=== PATIENT | female | born 2000 | race Caucasian/White ===

== ENCOUNTER → 2022-01-01 15:15 | Outpatient (CLI) | payer OTHER, SELFPAY ==
--- NOTE | ~2022-01-01 | US_ITS ---
EXAMINATION: US OB <= 14 weeks fetus DATE: 01/01/2022 15:49 INDICATION: Uncertain gestational dates TECHNIQUE: Real-time transabdominal and transvaginal obstetric ultrasound. FINDINGS: No prior studies for comparison. The uterus measures 11 x 5.6 x 7.5 cm. There is an intrauterine gestational sac, with pole iden tified. There is a small subchorionic hemorrhage superiorly to the right measuring 1.6 x 1.1 x 0.5 cm . The crown rump length measures 3.63 cm, which correlates with a estimated gestational age of 10 wee ks 4 days. heart tones are identified measuring 158 BPM. The ovaries are normal. IMPRESSION: 1. SL IUP with an EGA of 10 weeks, days (EDC by current ultrasound of 07/26/2022). 2: Small subchorionic hemorrhage. Reviewed, dictated and finalized at location A. IMPRESSION: 1. SL IUP with an EGA of 10 weeks, days (EDC by current ultrasound of 3). 2: Small subchorionic hemorrhage.
== END ==
PROVIDERS: PCP Family Medicine; Visit Provider Advanced Practice Midwife
DX: Z36.87 Encounter for antenatal screening for uncertain dates (principal); Z3A.10 10 weeks gestation of pregnancy; O42.90 Premature rupture of membranes, unspecified as to length of time between rupture and onset of labor, unspecified weeks of gestation
CPT/HCPCS: 76801

== ENCOUNTER 2022-02-01 13:20 | Outpatient (CLI) | payer OTHER, MEDICAID, SELFPAY ==
--- NOTE | ~2022-02-01 | US_ITS ---
EXAMINATION: US OB follow up DATE: 02/01/2022 15:09 INDICATION: Subchorionic hematoma. TECHNIQUE: Real-time transabdominal obstetric ultrasound. FINDINGS: Comparison to 01/01/2022 There is a single living fetus in transverse presentation. The placenta is anterior without placenta previa. cardiac activity and movement is noted with a heart rate of 136 beats per minute. T he amniotic fluid volume is normal. Interval resolution of subchorionic hematoma. The following biometric data were obtained: BPD: 28mm corresponds to gestational age 15 weeks 0 days. Head circumference: 107mm corresponds to gestational age 15 weeks 1 days. Abdominal circumference: 90mm corresponds to gestational age 15 weeks 1 days. Femur length: 16mm corresponds to gestational age 14 weeks 5 days. Estimated weight: 110grams +/- 17grams.] IMPRESSION: 1. Single living intrauterine in transverse presentation with an estimated gestational age of 15 weeks 0 days by inititial ultrasound. EDC by initial ultrasound is 07/26/2022. Appropriate int erval growth. 2. Normal placenta. 3: No evidence for subchorionic hematoma on the current study. Reviewed, dictated and finalized at location A. IMPRESSION: 1. Single living intrauterine in transverse presentation with an est imated gestational age of 15 weeks 0 days by inititial ultrasound. EDC by initi al ultrasound is 07/26/2022. Appropriate interval growth. 2. Normal placenta. 3: No evidence for subchorionic hematoma on the current study.
[2022-02-01 13:49] LABS: Basophils Absolute Auto 0.1 K/mm3 (0.0-0.1); Basophils Percent Auto 0.4 % (0.2-1.2); Eosinophils Absolute Auto 0.1 K/mm3 (0-0.3); Eosinophils Percent Auto 0.6 % (0-4.4); Hematocrit 39.8 % (37.0-47.0); Hemoglobin 13.1 g/dL (12.0-15.0); Immature Granulocyte Absolute 0.05 K/mm3 (0.00-0.031); Immature Granulocyte Percent A 0.4 % (0-0.5); Lymphocytes Absolute Auto 1.95 K/mm3 (0.9-3.2); Lymphocytes Percent Auto 17.3 % (18.3-44.2); Mean Corpuscular HGB Conc 32.9 g/dl (32-36); Mean Corpuscular Hemoglobin 30.9 pg (26-34); Mean Corpuscular Volume 93.9 fl (80-100); Mean Platelet Volume 10.8 fl (7.4-10.4); Monocytes Absolute Auto 0.6 K/mm3 (0.1-0.6); Monocytes Percent Auto 5.5 % (2.6-8.5); Neutrophils Absolute Auto 8.5 K/mm3 (1.3-6.7); Neutrophils Percent Auto 75.8 % (45.5-73.1); Platelet Count Result 240 k/mm3 (150-375); Red Blood Count 4.24 M/mm3 (4.2-5.4); Red Cell Distribution Width 12.5 % (11.5-14.5); White Blood Count 11.3 K/mm3 (4.5-10.0)
[2022-02-01 13:57] LABS: Hemoglobin A1C 4.9 % (<5.7)
[2022-02-01 14:33] LABS: Vitamin D 25 Hydroxy 90.5 ng/mL
[2022-02-01 14:38] LABS: HIV 1/2 Ab P24 Ag Result Negative (Negative)
[2022-02-01 14:47] LABS: Hepatitis B Surface Antigen Negative (Negative); Rubella IgG Antibody 30.6 IU/ML
[2022-02-01 15:03] LABS: Hepatitis C Virus Antibody Negative (Negative)
[2022-02-04 07:51] LABS: Rapid Plasma Reagin Non-Reactive (NonReactive)
[2022-02-05 10:40] LABS: Red Blood Cell Folate 802 ng/mL RBC (>280)
== END 2022-02-01 13:21 | disposition home or self-care (01) ==
LOC: ANHIMG 13:23
PROVIDERS: PCP Family Medicine; Visit Provider Obstetrics & Gynecology Gynecology
DX: O36.8910 Maternal care for other specified fetal problems, first trimester, not applicable or unspecified (principal); Z3A.15 15 weeks gestation of pregnancy
CPT/HCPCS: 36415; 76816; 82306; 82728; 82747; 83036; 85025; 86592; 86703; 86762; 86803; 86850; 86900; 86901; 87340; G0432

== ENCOUNTER 2022-03-06 08:21 | Outpatient (CLI) | payer OTHER, MEDICAID, SELFPAY ==
--- NOTE | ~2022-03-06 | US_ITS ---
EXAMINATION: US OB /maternal detail DATE: 03/06/2022 09:38 INDICATION: anatomic survey. TECHNIQUE: Real-time ultrasound of the pelvis was performed. COMPARISON: Ultrasound 02/01/2022, 01/01/2022 FINDINGS: There is a single living fetus in breech presentation. The placenta is anterior, 3.5 cm from the cer vix. The cervical length is normal. heart rate is 143 beats per minute (bpm). The amniotic flui d volume is subjectively normal. The following biometric data were obtained: Biparietal diameter (BPD): 4.3 cm; head circumference (HC): 16.7 cm; abdominal circumference (AC): 15 .1 cm; femur length (FL): 3.0 cm. These measurements are concordant. Estimated weight is 309 g +/- 79th g, which correlates with the 79th percentile when 07/30/22 is used as estimated date of delivery. As single measurements, these parameters are each equal to the following estimated gestational ages w ith ranges of +/- 2 standard deviations: BPD: 19 weeks 1 days (17 weeks 3 days - 20 weeks 6 days). HC: 19 weeks 2 days (17 weeks 6 days - 20 weeks 6 days). AC: 20 weeks 3 days (18 weeks 2 days - 22 weeks 3 days). FL: 19 weeks 1 days (17 weeks 2 days - 20 weeks 6 days). estimated gestational age based solely on measurements from this exam is 19 weeks 4 days +/- 1 weeks 3 days. The cerebral ventricles, cerebellum, cisterna magna, nuchal fold, and visualized portions of the spin e are normal. The heart is normal. The diaphragm, stomach, kidneys, and bladder are normal. There are two umbilical arteries to yield a 3-vessel cord. The cord insertion is normal. IMPRESSION: 1. Single living fetus in breech presentation. 2. Estimated weight is 309 g +/- 79th g, which correlates with the 79th percentile when 07/30/22 is used as estimated date of delivery. Note that the estimated date of delivery based on the first u ltrasound on 01/01/2022 was 07/26/2022. 3. Normal anatomic survey. Reviewed, dictated and finalized at location A. IMPRESSION: 1. Single living fetus in breech presentation. 2. Estimated weight is 309 g +/- 79th g, which correlates with the 79th percentile when 07/30/22 is used as estimated date of delivery. Note that the est imated date of delivery based on the first ultrasound on 01/01/2022 was 07/26/2022 . 3. Normal anatomic survey.
== END 2022-03-06 08:22 | disposition home or self-care (01) ==
PROVIDERS: PCP Family Medicine; Visit Provider Obstetrics & Gynecology Gynecology
DX: Z36.9 Encounter for antenatal screening, unspecified (principal); Z3A.19 19 weeks gestation of pregnancy
CPT/HCPCS: 76805

== ENCOUNTER 2022-03-25 14:37 | Observation (INO) | payer OTHER, SELFPAY ==
--- NOTE | 2022-03-25 14:37 | OBADM ---
This patient, Cierra Beach, admitted to the OB room OB Post 117 for observation. Patient/family oriented to hospital policies and general routines including ID bracelet, bed and alarms, visiting hours, pain management, procedures, bathroom and other care routines, personal items, smoking policy, room service/diet, and visiting hours. Patient/Family are encouraged to report perceived risks to care and to ask questions if they do not understand what they are told or what they should do.
[2022-03-25 15:10] VITALS: BMI 28.0
[2022-03-25 15:14] VITALS: BP 116/66; PULSE 81
[2022-03-25] MEDS: HYDROcodone/acetaminophen (*CRX) 10-325 MG TABLET 1 TAB PO (15:22)
[2022-03-25 15:25] LABS: Basophils Percent Auto 0.3 % (0.2-1.2); Eosinophils Absolute Auto 0.1 K/mm3 (0-0.3); Eosinophils Percent Auto 0.9 % (0-4.4); Hematocrit 35.6 % (37.0-47.0); Hemoglobin 11.8 g/dL (12.0-15.0); Immature Granulocyte Absolute 0.08 K/mm3 (0.00-0.031); Immature Granulocyte Percent A 0.7 % (0-0.5); Lymphocytes Absolute Auto 2.13 K/mm3 (0.9-3.2); Lymphocytes Percent Auto 18.3 % (18.3-44.2); Mean Corpuscular HGB Conc 33.1 g/dl (32-36); Mean Corpuscular Hemoglobin 31.3 pg (26-34); Mean Corpuscular Volume 94.4 fl (80-100); Mean Platelet Volume 10.4 fl (7.4-10.4); Monocytes Absolute Auto 0.6 K/mm3 (0.1-0.6); Monocytes Percent Auto 5.2 % (2.6-8.5); Neutrophils Absolute Auto 8.7 K/mm3 (1.3-6.7); Neutrophils Percent Auto 74.6 % (45.5-73.1); Platelet Count Result 224 k/mm3 (150-375); Red Blood Count 3.77 M/mm3 (4.2-5.4); Red Cell Distribution Width 12.2 % (11.5-14.5); White Blood Count 11.6 K/mm3 (4.5-10.0)
[2022-03-25 15:35] LABS: Alanine Aminotransferase 15 U/L (6-35); Albumin Level 3.9 g/dL (3.5-5.1); Alkaline Phosphatase 67 U/L (38-126); Anion Gap 7 mmol/L (8-16); Aspartate Amino Transferase 22 U/L (14-36); Bilirubin,Total 0.2 mg/dL (0.2-1.3); Blood Urea Nitrogen 6 mg/dL (7-17); Calcium 8.8 mg/dL (8.4-10.2); Carbon Dioxide 22 mmol/L (22-30); Chloride 107 mmol/L (98-107); Estimated Glomerular Filt Rate > 60; Glucose 78 mg/dL (65-110); Potassium 3.7 mmol/L (3.4-5.0); Sodium 136 mmol/L (137-145); Uric Acid 3.6 mg/dL (2.5-7.5)
--- NOTE | 2022-03-25 16:05 | PC.NURSE ---
Called Dr. Helton with lab results. Informed of decreased pain. Pt states that she is comfortable to go home. Return for ultrasound tomorrow.
--- NOTE | 2022-03-25 16:10 | PC.NURSE ---
Called ultrasound to schedule gallbladder ultrasound for tomorrow.
--- NOTE | 2022-03-30 04:43 | P.PNOB_ITS ---
OB - Triage/Final Diagnosis Visit Information Date of evaluation: 03/25/22 Reason for evaluation: other (RUQ abdominal pain) Comments/Additional reasons for admission: I have assessed the risk for this patient, Cierra Beach, and determined that she would benefit from observation care. Evaluation Laboratory results: Laboratory Tests 03/25/22 03/25/22 15:14 15:14 WBC 11.6 H RBC 3.77 L Hgb 11.8 L Hct 35.6 L MCV 94.4 MCH 31.3 MCHC 33.1 RDW 12.2 Plt Count 224 MPV 10.4 Immature Gran % (Auto) 0.7 H Neut % (Auto) 74.6 H Lymph % (Auto) 18.3 [place] % (Auto) 5.2 Eos % (Auto) 0.9 Baso % (Auto) 0.3 Lymph # (Auto) 2.13 [place] # (Auto) 0.6 Eos # (Auto) 0.1 Baso # (Auto) 0.0 Abs Immat Gran (auto) 0.08 H Absolute Neuts (auto) 8.7 H Absolute Nucleated RBC 0.0 Nucleated RBC % 0.0 Sodium 136 L Potassium 3.7 Chloride 107 Carbon Dioxide 22 Anion Gap 7 L BUN 6 L Creatinine 0.50 L Estim Creat Clear Calc Not Reportable Estimated GFR > 60 Glucose 78 Uric Acid 3.6 Calcium 8.8 Total Bilirubin 0.2 AST 22 ALT 15 Alkaline Phosphatase 67 Total Protein 7.0 Albumin 3.9
== END 2022-03-25 16:35 | disposition home or self-care (01) ==
PROVIDERS: Admitting Provider Obstetrics & Gynecology Gynecology; PCP Family Medicine; Visit Provider Obstetrics & Gynecology Gynecology
DX: O99.891 Other specified diseases and conditions complicating pregnancy (principal); R10.11 Right upper quadrant pain; Z3A.22 22 weeks gestation of pregnancy
CPT/HCPCS: 36415; 80053; 84550; 85025; A9270; G0378; G0379

== ENCOUNTER → 2022-03-26 08:02 | Outpatient (CLI) | payer OTHER, SELFPAY ==
--- NOTE | ~2022-03-26 | US_ITS ---
US abdomen limited INDICATION: Upper abdominal pain for one day. Patient 22 weeks . PROCEDURE: Realtime right upper abdominal ultrasound. COMPARISON: No prior studies for comparison. FINDINGS: The pancreas is normal without focal mass or pancreatic ductal dilation. Liver echotexture is normal without focal mass or intrahepatic biliary dilatation. There is normal directional flow i n the portal vein. The gallbladder is normal without stones, gallbladder wall thickening or pericholecystic fluid. Comm on bile duct measures 3 mm. No sonographic Gonzalez's sign. IMPRESSION: 1: Normal limited abdominal ultrasound. Reviewed, dictated and finalized at location A.
== END ==
PROVIDERS: PCP Obstetrics & Gynecology Gynecology; Visit Provider Obstetrics & Gynecology Gynecology
DX: R10.10 Upper abdominal pain, unspecified (principal)
CPT/HCPCS: 76705

== ENCOUNTER 2022-05-09 10:04 | Outpatient (CLI) | payer OTHER, SELFPAY ==
[2022-05-09 11:27] LABS: Hematocrit 36.6 % (37.0-47.0); Hemoglobin 12.1 g/dL (12.0-15.0)
[2022-05-09 11:43] LABS: Glucose 1 Hour PP 50gm Dose 93 mg/dL
[2022-05-09 12:19] LABS: HIV 1/2 Ab P24 Ag Result Negative (Negative)
[2022-05-09] MEDS: RHO(D) IMMUNE GLOBULIN 300 MCG/2 ML SYRINGE IM (15:13)
== END 2022-05-09 10:05 | disposition home or self-care (01) ==
LOC: ANHLAB 10:06
PROVIDERS: PCP Obstetrics & Gynecology Gynecology; Visit Provider Obstetrics & Gynecology Gynecology
DX: Z36.9 Encounter for antenatal screening, unspecified (principal); Z3A.00 Weeks of gestation of pregnancy not specified
CPT/HCPCS: 36415; 82947; 85014; 85018; 85461; 86703; 86850; 86900; 86901; 90384; 96372; G0432; J2790

== ENCOUNTER 2022-06-01 21:50 | Observation (INO) | payer OTHER, SELFPAY ==
[2022-06-01 22:00] VITALS: BMI 28.8
[2022-06-01 22:09] VITALS: BP 126/67; PULSE 82
[2022-06-01 22:15] VITALS: BP 111/61; PULSE 80
[2022-06-01 22:23] LABS: Appearance Urine Clear (Clear); Bilirubin Urine Negative (Negative); Blood Urine Negative (Negative); Color Urine Yellow (Yellow); Glucose Urine UA Negative (Negative); Ketones Urine Negative (Negative); Leukocyte Esterase Ur Negative LEU/UL (Negative); Nitrate Urine Negative (Negative); Protein Urine Negative (Negative); Urobilinogen Urine 0.2 mg/dL (<2.0)
[2022-06-01 22:30] VITALS: BP 104/60; PULSE 78
[2022-06-01 22:30] LABS: Add Urine Microscopic? NO
[2022-06-01 22:45] VITALS: BP 106/63; PULSE 75
[2022-06-01] MEDS: NIFEdipine 10 MG CAPSULE PO (23:22)
[2022-06-02 00:09] VITALS: BP 114/55; PULSE 81
--- NOTE | 2022-06-28 08:50 | P.PNOB_ITS ---
OB - Triage/Final Diagnosis Visit Information Date of evaluation: 06/04/22 Reason for evaluation: decreased movement Comments/Additional reasons for admission: I have assessed the risk for this patient, Cierra Beach, and determined that she would benefit from observation care. Evaluation Laboratory results: Laboratory Tests 06/01/22 22:09 Urine Color Yellow Urine Appearance Clear Urine pH 7.0 Ur Specific [place] 1.020 Urine Protein Negative Urine Glucose (UA) Negative Urine Ketones Negative Ur Blood (Man) Negative Urine Nitrate Negative Urine Bilirubin Negative Urine Urobilinogen 0.2 Leukocyte Esterase Rfl Negative
== END 2022-06-02 01:00 | disposition home or self-care (01) ==
PROVIDERS: Admitting Provider Obstetrics & Gynecology Gynecology; PCP Family Medicine; Visit Provider Advanced Practice Midwife
DX: O36.8130 Decreased fetal movements, third trimester, not applicable or unspecified (principal); Z3A.31 31 weeks gestation of pregnancy
CPT/HCPCS: 81003; A9270; G0378; G0379

== ENCOUNTER 2022-07-22 00:59 | Inpatient (IN) | payer OTHER, SELFPAY ==
[2022-07-22] VITALS (170 sets, daily range): BP systolic 68–156; BP diastolic 23–113; PULSE 64–194; RESP 16–18; TEMP 36.4–37.2; O2SAT 80–100; BMI 30.4
--- NOTE | 2022-07-22 00:59 | LDADM ---
This patient, Cierra Beach, was admitted to Labor/Delivery/Recovery 105 on 07/22/22 at 00:59. Plans for labor, pain management and were discussed with patient. Patient/family oriented to hospital policies and general routines including ID bracelet, bed and alarms, visiting hours, pain management, procedures, bathroom and other care routines, personal items, smoking policy, room service/diet and guest tray routines, security routines, and visiting hours. Patient/Family are encouraged to report perceived risks to care and to ask questions if they do not understand what they are told or what they should do. See OBIX for further documentation.
[2022-07-22 01:38] LABS: Basophils Absolute Auto 0.1 K/mm3 (0.0-0.1); Basophils Percent Auto 0.3 % (0.2-1.2); Eosinophils Absolute Auto 0.1 K/mm3 (0-0.3); Eosinophils Percent Auto 0.6 % (0-4.4); Hematocrit 37.3 % (37.0-47.0); Hemoglobin 12.8 g/dL (12.0-15.0); Immature Granulocyte Percent A 0.7 % (0-0.5); Lymphocytes Absolute Auto 3.21 K/mm3 (0.9-3.2); Lymphocytes Percent Auto 22.1 % (18.3-44.2); Mean Corpuscular HGB Conc 34.3 g/dl (32-36); Mean Corpuscular Hemoglobin 30.8 pg (26-34); Mean Corpuscular Volume 89.9 fl (80-100); Mean Platelet Volume 11.5 fl (7.4-10.4); Monocytes Percent Auto 6.5 % (2.6-8.5); Neutrophils Absolute Auto 10.2 K/mm3 (1.3-6.7); Neutrophils Percent Auto 69.8 % (45.5-73.1); Platelet Count Result 220 k/mm3 (150-375); Red Blood Count 4.15 M/mm3 (4.2-5.4); Red Cell Distribution Width 12.5 % (11.5-14.5); White Blood Count 14.6 K/mm3 (4.5-10.0)
[2022-07-22] MEDS: OXYTOCIN 30 UNITS/NS 500 ML 30 UNITS/500 ML BAG 6 UNITS IV CONT (03:55)
[2022-07-22] MEDS: LACTATED RINGERS 1,000 ML 125 ML IV CONT ×2 (03:55→06:18)
[2022-07-22 05:56] LABS: Rapid Plasma Reagin Non-Reactive (NonReactive)
--- NOTE | 2022-07-22 06:09 | WPDANESEPPF ---
Anes - Initial Pre Proc Eval Date/Time: 07/22/22 0540 Surgeon: Lluvia Helton MD Pre Op Diagnosis: Pain c contractions Pre Op Diagnosis: Leaking Fluid Patient Data Age: 22 Gender: F Height: 1.65 m Weight: 83 kg Last Vital Signs Temp 36.6 C 07/22/22 06:00 Pulse 78 07/22/22 06:03 Resp 16 07/22/22 06:00 BP 130/81 07/22/22 06:03 Pulse Ox 100 07/22/22 06:04 O2 Del Method Room Air 07/22/22 01:23 Allergies Allergy/AdvReac Type Severity Reaction Status Date / Time poison dot extract Allergy Mild Rash Verified 07/01/22 13:36 AMOXICILLIN TRIHYDRATE Allergy Mild Rash Uncoded 07/01/22 13:36 POTASSIUM CLAVULANATE Allergy Mild Rash Uncoded 07/01/22 13:36 Home Medications Medication Instructions Recorded Confirmed Type vitamin-ferrous sulfate 1 tablet PO DAILY 06/02/22 07/22/22 History 27 mg iron-folic acid 0.8 mg tablet Laboratory Tests 07/22/22 07/22/22 07/22/22 01:19 01:19 01:19 WBC 14.6 K/mm3 H K/mm3 (4.5-10.0) RBC 4.15 M/mm3 L M/mm3 (4.2-5.4) Hgb 12.8 g/dL g/dL (12.0-15.0) Hct 37.3 % % (37.0-47.0) MCV 89.9 fl fl (80-100) MCH 30.8 pg pg (26-34) MCHC 34.3 g/dl g/dl (32-36) RDW 12.5 % % (11.5-14.5) Plt Count 220 k/mm3 k/mm3 (150-375) MPV 11.5 fl H fl (7.4-10.4) Immature Gran % (Auto) 0.7 % H % (0-0.5) Neut % (Auto) 69.8 % % (45.5-73.1) Lymph % (Auto) 22.1 % % (18.3-44.2) [place] % (Auto) 6.5 % % (2.6-8.5) Eos % (Auto) 0.6 % % (0-4.4) Baso % (Auto) 0.3 % % (0.2-1.2) Lymph # (Auto) 3.21 K/mm3 H K/mm3 (0.9-3.2) [place] # (Auto) 1.0 K/mm3 H K/mm3 (0.1-0.6) Eos # (Auto) 0.1 K/mm3 K/mm3 (0-0.3) Baso # (Auto) 0.1 K/mm3 K/mm3 (0.0-0.1) Abs Immat Gran (auto) 0.10 K/mm3 H K/mm3 (0.00-0.031) Absolute Neuts (auto) 10.2 K/mm3 H K/mm3 (1.3-6.7) Absolute Nucleated RBC 0.0 K/mm3 K/mm3 (0.0-0.012) Nucleated RBC % 0.0 % % (0.0-0.2) RPR Non-reactive (NonReactive) Blood Type O Negative Antibody Screen Positive Antibody Identification Passive Due to RH Imm Glob Antigen Identification Cancelled MARTHA, IgG Interpret Not Performed MARTHA, Poly Interpret Neg MARTHA, Complement Interp Not Performed Patient hx anesthesia problems: none Family hx anesthesia problems: none Results Review: All pre-operative results and documents have been reviewed as part of the pre-operative evaluation. [facility] Family History Family History Grandparent Diabetes mellitus Hypertension Bladder cancer Kidney carcinoma Mother Hypothyroidism Hypertension Social History Social History Smoking status: Never smoker Substance use: never Lack of Transportation: No Lack of Food: Never True Current Housing: I Have Housing Concerned About Future Housing: No Difficulty Paying Gas/Electric Bills: No Difficulty Paying for Meds: No Currently Unemployed: No Education: Trade/Vocational Certificate Difficulty w/ Childcare or Family Care: No Spiritual care concerns: No Anes - Eval Final PreProcedure Day of Procedure 07/22/22 06:09 Patient weight: normal Heart: regular rate and rhythm Lungs: clear to auscultation Airway: Mallampati scale class II Neurological: alert and oriented Last oral intake: 4 hours ASA classification: II Emergent: no Anesthetic plan: proceed Anesthesia type and monitoring: regional epidural Results Review: All pre-operative results and documents have been reviewed as part of the pre-operative evaluation. Informed Consent: The patient's anesthetic plan and its attendant risks a
--- NOTE | 2022-07-22 06:10 | WPDANESEPN ---
Anes - Epidural Procedure Note Date/Time: 07/22/22 06:10 Consent: I have discussed with the patient/family/POA, the placement of an epidural catheter and the use of epidural narcotic/local anesthetic for labor analgesia and/or postoperative pain management, including associated potential risks, benefits, complications and side effects. I have discussed alternative methods of labor analgesia and/or postoperative pain management. The patient/family/POA, understand(s) and wish(es) to proceed with epidural narcotic/local anesthetic for labor analgesia and/or postoperative pain management. Time-Out: A pre-procedural Time-Out was completed immediately before starting the procedure and confirmed: Patient Identification, Site, Procedure, Patient Position and the Availability of Requisite Equipment. Clinical Indications: Pain c contractions Epidural Insertion Note Patient position: sitting Skin prep: chlorhexidine and sterile drape Needle: 18g Tuohy-Schliff Catheter: 20g Unstyleted Technique: Loss of resistance. Level of insertion: L3/4 Catheter skin ky (cm): 5 Length in epidural space (cm): 10 Skin anesthesia: lidocaine 1% Test dose: 1.5% Lidocaine with [id number] Epi, negative for subarachnoid Inj and negative for intravascular Inj Time of test dose: 05:52 Observations: tolerated well Complications: none
--- NOTE | 2022-07-22 07:03 | WPDANESEPN ---
Anes - Epidural Procedure Note Date/Time: 07/22/22 0643 Consent: I have discussed with the patient/family/POA, the placement of an epidural catheter and the use of epidural narcotic/local anesthetic for labor analgesia and/or postoperative pain management, including associated potential risks, benefits, complications and side effects. I have discussed alternative methods of labor analgesia and/or postoperative pain management. The patient/family/POA, understand(s) and wish(es) to proceed with epidural narcotic/local anesthetic for labor analgesia and/or postoperative pain management. Time-Out: A pre-procedural Time-Out was completed immediately before starting the procedure and confirmed: Patient Identification, Site, Procedure, Patient Position and the Availability of Requisite Equipment. Clinical Indications: Pain c contractions Epidural Insertion Note Patient position: sitting Skin prep: chlorhexidine and sterile drape Needle: 18g Tuohy-Schliff Catheter: 20g Unstyleted Technique: Loss of resistance. Level of insertion: L4/5 Catheter skin ky (cm): 6 Length in epidural space (cm): 11 Skin anesthesia: lidocaine 1% Test dose: 1.5% Lidocaine with [id number] Epi, negative for subarachnoid Inj and negative for intravascular Inj Time of test dose: 05:52 Observations: tolerated well Complications: none
--- NOTE | 2022-07-22 07:55 | WPDOBADMIT ---
Obstetrics - Admit Note Admission Note: record reviewed. No pertinent additions to the history and/or any subsequent changes in the physical findings that are not consistent with the expected course of the were found. Additions to the history and/or subsequent changes in the physical findings follow. Pt presents with SROM on 07/21/22 at 2215, clear fluid at 38 weeks 5 days.
--- NOTE | 2022-07-22 07:56 | PM.OBPNLAB ---
Pain Control Date/time seen: 07/22/22 07:40 Pain control: tolerating well and epidural Pelvic Exam Dilation (cm): 5 Effacement (%): 90 station: -2 Comments: Forebag present and bulging Contractions Monitor mode: External Contraction frequency: 3 (2-3) Contraction pattern: Irregular Contraction phase: Contraction Contraction intensity: Moderate Status status: Category l Assessment and Plan Plan: continuous present management Comments: patient presented early this morning with complaints of rupture of membranes at 10:15 a.m. last night. She was 2 cm on admission with irregular contractions. Orders given for Pitocin to be started if no cervical change after 2 hours. This morning she is comfortable with her epidural infusing. Her mother and partner are present and supportive. Bulging forebag ruptured and moderate amount of brown/ very lightly green tinted fluid returned. Plan to have peds at bedside for delivery for meconium. Discussed plan of care and questions answered. Anticipate vaginal .
--- NOTE | 2022-07-22 13:34 | P.PCNOB_ITS ---
OB - Delivery Note Procedure Delivery date: 07/22/22 Procedure: Delivery augmentation: Pitocin Delivery monitor: External FHT and External Uterine Route of delivery: Laceration Description: Vaginal (1st degree) Delivery repair: vicryl Specimen: Yes Quantitative Blood Loss (ml): 100 Anesthesia type: Epidural Disposition: Floor Narrative: Patient presented with spontaneous rupture membranes at home. There was lack of cervical change and Pitocin was started. she made great progress and progressed to complete dilation. She pushed with contractions and brought the head to a crown. After delivery of the head there was good restitution followed by the delivery of the anterior and posterior shoulders. After the delivery of the remainder of the infant, the infant was placed on the maternal abdomen and dried and stimulated by the pediatric team. After 1 minute of life the cord was doubly clamped and cut. Cord blood and cord gases were obtained. There was spontaneous delivery of the placenta. A first-degree vaginal laceration was repaired in the usual fashion. All delivery counts were correct patient skin to skin in the delivery room. weight unavailable at the time of this note. [place] Baby Date of : 07/22/22 Time of : 13:12 Weeks of gestation at delivery: 39 Infant gender: Male presentation: vertex position: Left Occiput Anterior Placenta delivery description: Spontaneous Cord Vessel Description: 3 Vessels, Clamped/Cut and Delayed Cord Clamping score one minute: 9 score five minutes: 9
[2022-07-22] MEDS: OXYTOCIN 30 UNITS/NS 500 ML 30 UNITS/500 ML BAG 125 UNITS IV CONT (13:38)
--- NOTE | 2022-07-22 13:39 | PM.OBDSVD ---
DS: Admitting Diagnosis Discharge Date 07/24/2021 Admitting Diagnosis SROM Term, DS: Discharge Diagnosis Discharge Diagnosis (1) Mother currently breast-feeding: Code(s): Z39.1 - Encounter for care and examination of lactating mother Status: Acute (2) (normal spontaneous vaginal delivery): Code(s): O80 - Encounter for full-term uncomplicated delivery Status: Acute (3) Rh negative status during : Code(s): O26.899 - Other specified related conditions, unspecified trimester; Z67.91 - Unspecified blood type, Rh negative Status: Acute Assessment and Plan: Infant Rh neg OB - DS: Summary Hospital Course Hospital Course: Uncomplicated OB Procedures : Ultrasound OB Procedures Intrapartum: Spontaneous Vag Delivery OB Procedures: : None Peripartum Data Infant Delivery Method: Natural Vaginal Laceration Description: Vaginal - 1st Degree complications: none Time Spent with Patient Time attestation: Total time spent providing and/or coordinating discharge services: Exam Narrative: Alert and oriented. Mood is pleasant and cooperative. Urinating without difficulty. Denies passing any large clots. Perineum with minimal edema. Fundus firm and below umbilicus. Const: General: cooperative, healthy appearing, no acute distress and alert Orientation/consciousness: patient oriented x3 Limitations: no limitations Resp: Effort & Inspection: normal respiratory effort Auscultation: clear to auscultation bilaterally Cardio: Rate: regular rate GI: Inspection: normal to inspection Neuro: General: patient oriented x3 Extrem: General: normal to inspection Psych: Appearance: grossly normal Mental Status: mental status grossly normal Affect: normal affect Thought process: Normal thought process present DS: Data Data Completed and Pending Labs on day of discharge: Labs from last 24 hours 07/22/22 07/22/22 07/22/22 01:19 01:19 01:19 WBC 14.6 H RBC 4.15 L Hgb 12.8 Hct 37.3 MCV 89.9 MCH 30.8 MCHC 34.3 RDW 12.5 Plt Count 220 MPV 11.5 H Immature Gran % (Auto) 0.7 H Neut % (Auto) 69.8 Lymph % (Auto) 22.1 [place] % (Auto) 6.5 Eos % (Auto) 0.6 Baso % (Auto) 0.3 Lymph # (Auto) 3.21 H [place] # (Auto) 1.0 H Eos # (Auto) 0.1 Baso # (Auto) 0.1 Abs Immat Gran (auto) 0.10 H Absolute Neuts (auto) 10.2 H Absolute Nucleated RBC 0.0 Nucleated RBC % 0.0 RPR Non-reactive Blood Type O Negative Antibody Screen Positive Antibody Identification Passive Due to RH Imm Glob Antigen Identification Cancelled MARTHA, IgG Interpret Not Performed MARTHA, Poly Interpret Neg MARTHA, Complement Interp Not Performed Discharge Plan Discharge Attending physician on discharge: Anthony Palomares Discharging Clinician: Anabel Dee Anticipated Discharge Date/Time: 07/24/22 13:40 Patient Disposition: Home, Self-Care Activity: may shower Diet: as tolerated Discharge Instructions: Continue taking your vitamin and any other supplements as previously directed (Examples: Iron, Vitamin D). You may take Tylenol 1000mg over the counter every 6 hours as needed for pain. Do not exceed 4000mg of Tylenol daily. You may continue using tucks pads and dermoplast spray if needed for a few more days. Patient Instructions: Antibiotic Form Stand Alone Forms: General Discharge Information Follow-up/Referrals: Anabel Dee, CNM [Certified Nurse Air Pollution Engineer] - (6 weeks post ) Discharge Medications: New docusate sodium 100 mg Capsule 100 mg PO BID PRN (Reason: Constipation) 30 Days Qty: 60 0RF ibuprofen 600 mg Tablet 600 mg PO Q6H PRN (Reason: Cramping) 14 Days Qty: 30 0RF Discontinued 27 mg iron- 0.8 mg Tablet 1 tablet PO DAILY Date of admission: 07/22/22 00:59 Primary Care Provider: Kalpesh,Nai
[2022-07-22] MEDS: WITCH HAZEL 40 PADS 1 PAD TOPICAL (15:20)
[2022-07-22] MEDS: BENZOCAINE 20% AER SPR (*SP) 56 GM CAN 1 SPRAY TOPICAL (15:20)
--- NOTE | 2022-07-22 15:45 | PC.NURSE ---
Patient transferred to post room #285 via ( w/c ). Support person present. Oriented to unit, room, information board, rooming in, admission packet and security measures. Patient verbalizes understanding.
[2022-07-22] MEDS: DOCUSATE SODIUM 100 MG CAPSULE PO (15:54)
[2022-07-23 03:52] LABS: Hematocrit 36.4 % (37.0-47.0); Hemoglobin 12.1 g/dL (12.0-15.0)
--- NOTE | 2022-07-23 07:17 | P.PNOB_ITS ---
OB - PN: Subj Subjective Date/time seen: 07/23/22 07:00 Patient comments: no complaints and pain well controlled baby status: doing well [place] feeding status: breast and bottle feeding OB - PN: Obj Data Labs 07/23/22 03:44 Labs: Laboratory Results - last 24 hr 07/23/22 03:44 Hgb 12.1 Hct 36.4 L OB - PN A/P Plan day: 1 Plan: discharge home Comments: pt strongly desires DC home today. Time Spent With Patient Time: Total time spent is greater than 50% in coordination of care (as documented) at patient's floor/unit and/or counseling patient: Review of Systems Review of Systems: All systems reviewed & are unremarkable except as noted in HPI and below Exam Narrative: Alert and oriented. Mood is pleasant and cooperative. Urinating without difficulty. Denies passing any large clots. Perineum with minimal edema. Fundus firm and below umbilicus. Const: General: cooperative, healthy appearing, no acute distress and alert Orientation/consciousness: patient oriented x3 Limitations: no limitations Resp: Effort & Inspection: normal respiratory effort Auscultation: clear to auscultation bilaterally Cardio: Rate: regular rate GI: Inspection: normal to inspection Neuro: General: patient oriented x3 Extrem: General: normal to inspection Psych: Appearance: grossly normal Mental Status: mental status grossly normal Affect: normal affect Thought process: Normal thought process present
[2022-07-23] MEDS: MULTIVIT/MIN/PREN/FOL AC/IRON TABLET 1 TAB PO (08:28)
[2022-07-23] MEDS: DOCUSATE SODIUM 100 MG CAPSULE PO ×2 (08:28→17:28)
[2022-07-23 08:30] VITALS: BP 128/75; PULSE 82; RESP 18; TEMP 36.8; O2SAT 99
--- NOTE | 2022-07-23 10:09 | PC.NURSE ---
[id number] Introductions were made, then consulted with patient to assess needs related to . Mother led the conversation with her?plans to feed?her infant and the?experience so far. Mother states her nipples are sore and cracked. Resources provided for inpatient and outpatient services with offer of assistance and the mom/baby guide. Mother voiced understanding of information and received offer of assistance. Mother works well with her infant with encouragement and education. Encouraged understanding of the benefits of skin to skin (demonstrating unwrapping and placing upright on her chest), stimulating with massage touch, changing positions to encourage wakefulness, how to watch for early feeding cues, responsive feeding, feeding on demand (aiming for 8-12 times in 24 hours, about every 2-3 hours), milk production, building/maintaining a milk supply, duration of feeding, signs of adequate intake/output and how to record on the feeding sheet. Father of baby initiated a discussion regarding supplementing with a bottle and pacifier use. Risks, benefits of each with reviewing milk production was discussed. Parents made the decision to bottle feed two bottles prior to meeting RN related to sore nipples. Discussed the supply demand needed to stimulate milk production with infant receiving bottles of formula. Reviewed positioning and ear, shoulder, hip alignment, supporting the breast to facilitate a deep latch, asymmetrical latch (off-center), leading with the chin with a big, open, wide gape and body close to mother. Infant latched optimally to the right breast in laid-back cross cradle position after several attempts. The parents confirmed visualizing demonstrating instincts to find the breast and feeding cues. Education given to mother of how to visualize suck/swallow ratios and listen for drinking at the breast. No swallows seen or heard. was able to maintain latch without discomfort to mother. Nipple care reviewed with optimal latch and good positioning. Nipple was slightly misshaped after . Reminding mother of comfort measures of healing with a warm and wet washcloth to rinse breast, then leave open to air-dry as needed. Reviewed good handwashing when , changing positions while learning the art of teaching herself and the or touching the breast/nipples to prevent infection. Mother was encouraged to stay a second 24 hours to get established with optimally. Resources used to facilitate learning were used with the mom and baby guide. Mother voiced understanding of skin to skin, stimulating with massage touch, responsive feedings, talking to to encourage if it has been 2 -2.5 hours since the start of the last , to call if infant does not latch, or if there is discomfort with . Resources provided for inpatient/outpatient with the mom/baby guide. Parents voiced understanding of information, demonstrated learning and will call if there is a request for assistance. Reported to the primary RN.
[2022-07-23 12:30] VITALS: BP 125/67; PULSE 70; RESP 18; TEMP 36.7; O2SAT 96
--- NOTE | 2022-07-23 15:22 | PC.NURSE ---
[id number] Consulted with patient to assess needs related to . Mother led conversation with her experience with feeding baby so far. Mother works well with her infant with encouragement. Reviewed working with , supporting breast and how to protect the nipples with an optimal deep latch, good positioning, and good hand washing. Encouraged understanding the benefits of skin to skin, responding to feeding cues, frequencies of feeding 8-12 times in 24 hours (approximately 2-3 hours), duration of feedings, milk production, intake/output feeding sheet and signs of adequate intake encouraging swallowing at the breast. Reviewed positioning and alignment, supporting breast, off-centered (asymmetrical latch) and leading with the chin with big, open, wide gape. Infant latched optimally to the right breast in football position. Education given to mother of how to visualize suck/swallow ratios and listen for drinking at the breast. No swallowing visualized or heard. Mother is encouraged to gently massage and stimulate her breast with compressing the milk ducts to encourage milk expression. Infant was able to maintain latch without discomfort to mother. Nipple care reviewed with optimal latch, good positioning and using clean hands when feeding her infant and touching her breast. Infant self detached and was placed skin to skin on mother's chest. Mother instructed to call for assistance when she visualized feeding cues.Resources used to facilitate learning were used from the tool, mom and baby guide. Mother voiced understanding of the education shared, to call for assistance if the infant does not latch or if there is discomfort with . Reported to the primary RN. [id number] Several attempts were made to latch optimally to the left breast using football positioning. Most latches were shallow and nipple was misshaped; however, mother denied pain with an optimal latch for 5-10 min, then the infant detached. Mother requested education on swaddling and it was received well. Reported to the Primary RN. [id number] Purposely rounded to assess needs. Mother is holding a swaddled infant visiting with grandpa . Mother declines at this time. RN encouraged every 2-3 hours from the start of a feeding to another start of a feeding and it has been 3-4 hours at this point. Mother of baby states that her mother (a nurse) is coming up to help her breastfeed. Maternal mother doesn't have experience personally or as a working practice was confirm but patient states she has been taught . Mother was encouraged to call for assistance if her doesn't wake to breastfeed or if there's pain with . Mother voiced understanding of education. Reported to the Primary RN.
--- NOTE | 2022-07-23 16:10 | PC.NURSE ---
[id number] Purposely rounded to assess needs. Stimulated infant for waking, then positioned in good alignment in the football position on the right breast. Infant latched optimally and mother denied any discomfort. Rare swallowing was heard, mother was encouraged to keep her actively , call for assistance if doesn't latch every 2-3 hours or there's pain with . Reported to the Primary RN.
[2022-07-23 19:50] VITALS: BP 124/80; PULSE 79; RESP 18; TEMP 36.6
[2022-07-24 07:50] VITALS: BP 115/72; PULSE 65; RESP 16; TEMP 36.9; O2SAT 100
[2022-07-24] MEDS: MULTIVIT/MIN/PREN/FOL AC/IRON TABLET 1 TAB PO (08:15)
--- NOTE | 2022-07-24 08:29 | PC.NURSE ---
Patient instructed on viewing the discharge video Mother & Baby Care, The First Two Weeks . Patient was given the opportunity and encouraged to ask questions. Patient verbalized understanding of information shared and has been given the mother/baby guide for home reference.
--- NOTE | 2022-07-24 09:51 | PM.OBPNVD ---
OB - PN: Subj Subjective Date/time seen: 07/24/22 0755 Patient comments: no complaints and pain well controlled baby status: doing well and nursing well feeding status: breast and bottle feeding OB - PN: Obj Data Labs 07/23/22 03:44 OB - PN A/P Plan day: 2 Plan: discharge home Time Spent With Patient Time: Total time spent is greater than 50% in coordination of care (as documented) at patient's floor/unit and/or counseling patient: Review of Systems Review of Systems: All systems reviewed & are unremarkable except as noted in HPI and below Exam Narrative: Alert and oriented. Mood is pleasant and cooperative. Urinating without difficulty. Denies passing any large clots. Perineum with minimal edema. Fundus firm and below umbilicus. Const: General: cooperative, healthy appearing, no acute distress and alert Orientation/consciousness: patient oriented x3 Limitations: no limitations Resp: Effort & Inspection: normal respiratory effort Auscultation: clear to auscultation bilaterally Cardio: Rate: regular rate GI: Inspection: normal to inspection Neuro: General: patient oriented x3 Extrem: General: normal to inspection Psych: Appearance: grossly normal Mental Status: mental status grossly normal Affect: normal affect Thought process: Normal thought process present
--- NOTE | 2022-07-24 09:55 | PM.OBDSVD ---
DS: Admitting Diagnosis Discharge Date 07/24/22 Admitting Diagnosis IUP at 39 weeks DS: Discharge Diagnosis Discharge Diagnosis (1) Rh negative status during : Code(s): O26.899 - Other specified related conditions, unspecified trimester; Z67.91 - Unspecified blood type, Rh negative Status: Acute (2) (normal spontaneous vaginal delivery): Code(s): O80 - Encounter for full-term uncomplicated delivery Status: Acute (3) Mother currently breast-feeding: Code(s): Z39.1 - Encounter for care and examination of lactating mother Status: Acute OB - DS: Summary Hospital Course Hospital Course: Uncomplicated OB Procedures : Ultrasound OB Procedures Intrapartum: Spontaneous Vag Delivery OB Procedures: : None Peripartum Data Infant Delivery Method: Natural Vaginal Laceration Description: Vaginal - 1st Degree Episiotomy description: None complications: none Status at Discharge Overall status at discharge: patient is progressing back to baseline Time Spent with Patient Time attestation: Total time spent providing and/or coordinating discharge services: DS: Data Data Completed and Pending Pending studies at discharge: Pending at discharge 07/22/22 13:54 Surgical [PTH] Routine Discharge Plan Discharge Attending physician on discharge: Anthony Palomares Discharging Clinician: Anabel Dee Anticipated Discharge Date/Time: 07/24/22 13:40 Patient Disposition: Home, Self-Care Activity: may shower Diet: as tolerated Discharge Instructions: Continue taking your vitamin and any other supplements as previously directed (Examples: Iron, Vitamin D). You may take Tylenol 1000mg over the counter every 6 hours as needed for pain. Do not exceed 4000mg of Tylenol daily. You may continue using tucks pads and dermoplast spray if needed for a few more days. Education: Mom and Baby Guide Given to: Mother Follow-Up: Call your delivering provider's office for an appointment to be seen in: Call for appointment Mom and baby should come [facility] the [facility] for the follow-up appointment. Appointment Date/Time: July 26, 2022 at 11:00 am What to expect at your follow-up visit: Physical Assessment Call [phone] if you are unable to keep your appointment time. BREAST CARE: * Wear a snug supportive bra. * For engorgement discomfort: Breast Feeding: * Apply warm moist washcloths * Express milk as needed to relieve engorgement * Wear loose clothing * For sore nipples: * Identify correct latch-on * Apply warm moist washcloths before and after nursing * Air dry nipples after nursing * May apply Lansinoh cream to nipples EPISIOTOMY/PERINEAL CARE: * Until bleeding stops, use your mark bottle after urinating * Change your pad frequently throughout the day * You may take sitz baths several times a day (fill your bathtub with warm water and soak for 20 minutes.) Do NOT bathe in the water * No tub baths until seen by your physician - You may shower ACTIVITY: * Rest as much as possible. * Do not exercise or lift anything heavier than your baby (such as laundry or other children.) * Avoid stairs or driving as much as possible. * Do not put anything into the vagina. No douching, tampons, or sexual activity until seen by physician. NOTIFY PHYSICIAN IF YOU HAVE ANY QUESTIONS OR IF ANY OF THE FOLLOWING SYMPTOMS OCCUR: * If your episiotomy or incision becomes red, swollen, or more painful than what you have experienced in the hospital. * If your vaginal bleeding becomes foul smelling. * If your vaginal bleeding becomes more heavy than a period or if your bleeding changes from pink to bright red. However, you may pass an occasional walnut-sized clot once or twice for the first week . * If you experience a sharp, shooting
--- NOTE | 2022-07-24 15:21 | PC.NURSE ---
[id number] Mother led the conversation with her experience and plan to feed her so far and her ability to independently latch optimally without discomfort. Reminded mother to use good handwashing technique to prevent infection. Mother is feeding appropriately for growth of infant and understands stimulating infant to eat if needed. has had appropriate feedings in the last 24 hours meets the outcomes for weight, output and jaundice at this time. Mother was demonstrating an effective breastfeed on the right breast using football and was encourage to detach after readjusted and repositioned with a shallow latch. Mother was encouraged in a laid-back cross cradle position and infant latched optimally with no pain to mother. Mother states she is confident to continue effectively breastfeed her infant at home, when to call for assistance and denies any additional assistance or education at this time. Reinforced understanding of milk production, transition of milk, signs of adequate intake, transition of stool, prevention/relief of engorgement, responsive watching for feeding cues, the different methods of stimulating to breastfeed 2-3 hours after the start of the last feeding, community resources, medication information reviewed per [employer] and when to call a provider using the resource of the mom and baby guide. Mother voiced understanding of the education shared. Reported to the primary RN.
[2022-07-26 11:31] VITALS: BP 128/85; PULSE 85; RESP 18; TEMP 37.5; O2SAT 99
== END 2022-07-24 11:02 | disposition home or self-care (01) | DRG 807 ==
LOC: ANHLDR 13:41 → ANHOB2 07-23 07:21 → ANHLDR 07-25 10:16 → ANHOB2 07-25 10:16
PROVIDERS: Admitting Provider Obstetrics & Gynecology; PCP Family Medicine; Visit Provider Advanced Practice Midwife
DX: O42.92 Full-term premature rupture of membranes, unspecified as to length of time between rupture and onset of labor (principal); Z37.0 Single live birth; O26.893 Other specified pregnancy related conditions, third trimester; O36.8330 Maternal care for abnormalities of the fetal heart rate or rhythm, third trimester, not applicable or unspecified; Z3A.38 38 weeks gestation of pregnancy; O70.0 First degree perineal laceration during delivery; Z67.91 Unspecified blood type, Rh negative
CPT/HCPCS: 36415; 84112; 85014; 85018; 85025; 86592; 86850; 86880; 86900; 86901; 88307; A9270; J2590; J2795; J7120

== ENCOUNTER 2023-06-18 15:02 | Outpatient (CLI) | payer OTHER, SELFPAY ==
--- NOTE | ~2023-06-18 | US_ITS ---
EXAMINATION: US OB <=14 wk fetus w TV DATE: 06/18/2023 16:19 INDICATION: Uncertain gestational dates TECHNIQUE: Real-time transabdominal and transvaginal obstetric ultrasound. FINDINGS: No prior studies The uterus measures 8.3 x 3.9 x 5.9 cm. There is an intrauterine gestational sac, with pole kitty ntified. The crown rump length measures 0.49 cm, which correlates with a estimated gestational age o f 6 weeks 1 day. heart tones are identified measuring 105 BPM. There is a 2.2 cm corpus lutea l cyst of the right ovary. IMPRESSION: 1. SL IUP with an EGA of 6 weeks, 1 days (EDC by current ultrasound of 02/10/2024). Reviewed, dictated and finalized at location L. AGRAPH OPERATOR IMPRESSION: 1. SL IUP with an EGA of 6 weeks, 1 days (EDC by current ultrasound of ).
== END 2023-06-18 15:03 | disposition home or self-care (01) ==
PROVIDERS: PCP Family Medicine; Visit Provider Obstetrics & Gynecology Gynecology
DX: Z36.87 Encounter for antenatal screening for uncertain dates (principal); Z3A.01 Less than 8 weeks gestation of pregnancy
CPT/HCPCS: 76801; 76817

== ENCOUNTER 2023-07-04 12:26 | Outpatient (CLI) | payer OTHER, SELFPAY ==
--- NOTE | ~2023-07-04 | US_ITS ---
EXAMINATION: US OB <= 14 weeks fetus DATE: 07/04/2023 13:24 INDICATION: Uncertain dates during first trimester TECHNIQUE: Real-time pelvic transabdominal and transvaginal ultrasound was performed. COMPARISON: 06/18/2023 FINDINGS: The uterus measures 10.6 x 5.4 x 7.2 cm. There is an intrauterine gestational sac. A yolk s ac is identified. heart motion is identified measuring 158 beats per minute (bpm) by M-mode Dop pler. The crown rump length measures 1.9 cm, which correlates with an estimated gestational age of 8 weeks and 2 day(s) (+/-) 5 day(s). The right ovary measures 3.2 x 1.4 x 2.3 cm. The left ovary measures 3.0 x 1.6 x 2.5 cm. There is nor mal vascular flow in the ovaries. There is no free fluid in the pelvis. IMPRESSION: 1. Live intrauterine with an estimated gestational age of 8 weeks and 2 day(s) (+/-) 5 day( s) and an estimated delivery date of 02/11/2024. Reviewed, dictated and finalized at location F. TRIC CRANE OPERATOR IMPRESSION: 1. Live intrauterine with an estimated gestational age of 8 weeks and 2 day(s) (+/-) 5 day(s) and an estimated delivery date of 02/11/2024.
== END 2023-07-04 12:27 | disposition home or self-care (01) ==
LOC: ANHIMG 12:29
PROVIDERS: PCP Family Medicine; Visit Provider Obstetrics & Gynecology Gynecology
DX: Z36.87 Encounter for antenatal screening for uncertain dates (principal); Z3A.00 Weeks of gestation of pregnancy not specified
CPT/HCPCS: 76801

== ENCOUNTER 2023-08-27 10:06 | Observation (INO) | payer OTHER, SELFPAY ==
--- NOTE | ~2023-08-27 | US_ITS ---
EXAMINATION: US OB limited DATE: 08/27/2023 11:31 INDICATION: Absent heart tones in office examination TECHNIQUE: Real-time ultrasound of the pelvis was performed. The interpreting radiologist was not pre sent for the study. COMPARISON: 07/04/2023 FINDINGS: There is a single living fetus in transverse lie with vertex to maternal left. The placenta is anter ior. Cunningham-rump length measures 7.7 cm which response to an estimated gestational age of 13 weeks and 5 days which is significantly less than the expected gestational age of 16 weeks and 1 day based upo n prior ultrasound performed on 07/04/2023. There is no evident heart motion by M-mode or color Doppler consistent with demise. The amniotic fluid volume appears subjectively normal. IMPRESSION: 1. Single living fetus in transverse lie with crown-rump length significantly less than would be exp ected based upon previously estimated gestational age and without evident heart motion consiste nt with demise. Reviewed, dictated and finalized at location A. D SWEATBAND CUTTER IMPRESSION: 1. Single living fetus in transverse lie with crown-rump length significantly less than would be expected based upon previously estimated gestational age and without evident heart motion consistent with demise.
[2023-08-27 10:17] VITALS: BP 124/64; PULSE 74; PULSE 77; O2SAT 100
--- NOTE | 2023-08-27 11:00 | PC.NURSE ---
1100--Ultrasounds tech at bedside. Pt and tearful at this time.
--- NOTE | 2023-08-27 11:20 | PC.NURSE ---
1124--Phone call with Anabel Dee CNM transferred to room for her to discuss ultrasound results and plan of care with pt.
--- NOTE | 2023-08-27 11:38 | PC.NURSE ---
1138--Admission questions and assessment deferred at this time. Pt returning this evening for IUFD induction.
--- NOTE | 2023-08-31 10:30 | PM.OBTRLD ---
OB - Triage/Final Diagnosis Visit Information Date of evaluation: 08/28/23 Comments/Additional reasons for admission: I have assessed the risk for this patient, Cierra Beach, and determined that she would benefit from observation care. Final Diagnosis (1) IUFD at less than 20 weeks of gestation: Code(s): O02.1 - Missed Status: Acute
--- NOTE | 2023-08-31 10:36 | P.DS_ITS ---
DS: Admitting Diagnosis Discharge Date 08/28/[address] Helton Admitting Diagnosis IUFD at 16 weeks DS: Discharge Diagnosis Discharge Diagnosis (1) Rh negative status during : Code(s): O26.899 - Other specified related conditions, unspecified trimester; Z67.91 - Unspecified blood type, Rh negative Status: Acute (2) (normal spontaneous vaginal delivery): Code(s): O80 - Encounter for full-term uncomplicated delivery Status: Acute (3) IUFD at less than 20 weeks of gestation: Code(s): O02.1 - Missed Status: Acute OB - DS: Summary Hospital Course Hospital Course: uncomplicated OB Procedures : Ultrasound OB Procedures Intrapartum: Spontaneous Vag Delivery OB Procedures: : RHo (D) lg Peripartum Data Delivery Method: Natural Vaginal Laceration Description: None Episiotomy description: None complications: none Status at Discharge Functional status at discharge: independent ambulation Overall status at discharge: patient is progressing back to baseline Time Spent with Patient Time attestation: Total time spent providing and/or coordinating discharge services: Discharge Plan Discharge Attending physician on discharge: Lluvia Helton Consulting providers: Anabel Dee; Eduar Hill Discharging Clinician: Anabel Dee Anticipated Discharge Date/Time: 08/27/23 11:27 Patient Disposition: Home, Self-Care Activity: as tolerated Diet: as tolerated Patient Instructions: Antibiotic Form Stand Alone Forms: General Discharge Information Follow-up/Referrals: Anabel Dee, CNM [Certified Nurse Tariff Publishing Agent] - Discharge Medications: Discontinued ibuprofen 600 mg Tablet 600 mg PO Q6H PRN (Reason: Cramping) 14 Days Qty: 30 0RF norethindrone (contraceptive) [Ortho Micronor] 0.35 mg tablet 0.35 mg PO DAILY Qty: 84 4RF No Action [id number] 1 mg Tablet 1 tablet PO DAILY Date of admission: 08/27/23 10:06 Primary Care Provider: KalpeshAdriana Admitting Provider: Lluvia Helton Attending physician on admission: Lluvia Helton Condition: Stable
== END 2023-08-27 11:38 | disposition home or self-care (01) ==
PROVIDERS: Admitting Provider Obstetrics & Gynecology Gynecology; PCP Family Medicine; Visit Provider Obstetrics & Gynecology Gynecology
DX: O02.1 Missed abortion (principal); O26.899 Other specified pregnancy related conditions, unspecified trimester; Z67.91 Unspecified blood type, Rh negative
CPT/HCPCS: 76815; G0378; G0379

== ENCOUNTER 2023-08-27 16:07 | Inpatient (IN) | payer OTHER, SELFPAY ==
[2023-08-27] VITALS (9 sets, daily range): BP systolic 84–126; BP diastolic 61–80; PULSE 69–86; O2SAT 100; BMI 31.1
--- NOTE | 2023-08-27 17:26 | WPDOBADMIT ---
Obstetrics - Admit Note Admission Note: record reviewed. No pertinent additions to the history and/or any subsequent changes in the physical findings that are not consistent with the expected course of the were found. Additions to the history and/or subsequent changes in the physical findings follow. None. Cierra is admitted from home after being diagnosed with an IUFD in the office. She denies bleeding or cramping. No recent illness or trauma.
--- NOTE | 2023-08-27 17:27 | PM.OBPNLAB ---
Pain Control Date/time seen: 08/27/23 17:15 Comments: CNM at bedside Pelvic Exam Comments: deferred Contractions Monitor mode: None Assessment and Plan Comments: Discussed IUFD and plan of care. Discussed IOL process and pain control options. Discussed labs and testing options. Emotional support provided. Anticipate vaginal delivery of IUFD. Dr. Helton updated.
[2023-08-27] MEDS: miSOPROStol 200 MCG TABLET 400 MCG PO (18:24)
[2023-08-27 18:31] LABS: Basophils Percent Auto 0.2 % (0.2-1.2); Eosinophils Absolute Auto 0.1 K/mm3 (0-0.3); Eosinophils Percent Auto 1.1 % (0-4.4); Hematocrit 40.9 % (37.0-47.0); Hemoglobin 13.8 g/dL (12.0-15.0); Immature Granulocyte Absolute 0.04 K/mm3 (0.00-0.031); Immature Granulocyte Percent A 0.4 % (0-0.5); Lymphocytes Absolute Auto 2.85 K/mm3 (0.9-3.2); Lymphocytes Percent Auto 29.1 % (18.3-44.2); Mean Corpuscular HGB Conc 33.7 g/dl (32-36); Mean Corpuscular Hemoglobin 30.9 pg (26-34); Mean Corpuscular Volume 91.5 fl (80-100); Mean Platelet Volume 11.3 fl (7.4-10.4); Monocytes Absolute Auto 0.5 K/mm3 (0.1-0.6); Monocytes Percent Auto 5.2 % (2.6-8.5); Neutrophils Absolute Auto 6.3 K/mm3 (1.3-6.7); Platelet Count Result 269 k/mm3 (150-375); Red Blood Count 4.47 M/mm3 (4.2-5.4); Red Cell Distribution Width 12.6 % (11.5-14.5); White Blood Count 9.8 K/mm3 (4.5-10.0)
[2023-08-27 20:23] LABS: Amphetamine Screen Urine Negative (Negative); Barbiturate Screen Urine Negative (Negative); Benzodiazepines Screen Urine Negative (Negative); Cannabinoid Screen Urine Negative (Negative); Cocaine Screen Urine Negative (Negative); Methadone Screen Urine Negative (Negative); Opiate Screen Urine Negative (Negative); Phencyclidine Screen Urine Negative (Negative)
[2023-08-27 20:42] LABS: Rubella IgG Antibody 39.2 IU/ML
[2023-08-27 20:48] LABS: Free T4 Free Thyroxine 0.92 ng/mL (0.78-2.19)
[2023-08-27 21:31] LABS: Hemoglobin A1C 5.2 % (<5.7)
[2023-08-28] VITALS (83 sets, daily range): BP systolic 90–125; BP diastolic 35–80; PULSE 61–153; RESP 16; TEMP 36.5–37.6; O2SAT 90–100
[2023-08-28] MEDS: miSOPROStol 200 MCG TABLET 800 MCG PO ×2 (01:12→05:43)
--- NOTE | 2023-08-28 05:40 | PM.OBPRVD ---
OB - Vaginal Delivery Note Procedure Delivery date: 08/28/23 Events: Other (IUFD diagnosed in the office) Induction method: Per Misoprostol Protocol Delivery monitor: External Uterine Route of delivery: Episiotomy description: None Laceration Description: None Specimen: Yes Quantitative Blood Loss (ml): 200 Anesthesia type: None Disposition: Other (Remain on L&D unit) Complications: No immediate complications Narrative: Cierra presented to the office on 08/27/23 for a routine visit. CNM unable to dopple FHTs. Limited bedside ultrasound performed and IUFD diagnosed. She arrived to the L&D unit for confirmation. After confirmation, she returned home to make arrangements for her son and gather belongings. She returned to L&D and was given cytotec for induction. She had SROM at 0330. About one hour afterwards she reported increasing in cramping and CNM came to unit. On arrival to her room, Cierra had just reported feeling a large gush. On inspection, the fetus was found to be at her perineum. The umbilical cord was clamped and the fetus was placed in a blanket and handed to Cierra to hold. Bleeding and pain were stable. An exam was done 3 times after and the placenta remained undelivered. As of 717, the placenta remains undelivered and Dr. Helton has assumed care. Baby Date of : 08/28/23 Time of : 05:15 Weeks of gestation at delivery: 16 Infant gender: Male Weight (pounds): 0 (unavailable at the time of this note) presentation: vertex Placenta delivery description: Other (See MD note) Cord Vessel Description: Other (unable to assess due to extreme prematurity) score one minute: 0 score five minutes: 0
--- NOTE | 2023-08-28 06:00 | PM.OBDSVD ---
DS: Admitting Diagnosis Admitting Diagnosis 23 y.o. at 16 weeks 1 day. IUFD Rh negative DS: Discharge Diagnosis Discharge Diagnosis (1) Rh negative status during : Code(s): O26.899 - Other specified related conditions, unspecified trimester; Z67.91 - Unspecified blood type, Rh negative Status: Acute (2) IUFD at less than 20 weeks of gestation: Code(s): O02.1 - Missed Status: Acute OB - DS: Summary Hospital Course Hospital Course: Uncomplicated OB Procedures : Ultrasound OB Procedures Intrapartum: Spontaneous Vag Delivery Peripartum Data Infant Delivery Method: Natural Vaginal Laceration Description: None Episiotomy description: None Status at Discharge Functional status at discharge: independent ambulation Overall status at discharge: patient is back to baseline Time Spent with Patient Time attestation: Total time spent providing and/or coordinating discharge services: DS: Data Data Completed and Pending Labs on day of discharge: Labs from last 24 hours 08/27/23 08/27/23 08/27/23 18:17 18:15 18:14 WBC RBC Hgb Hct MCV MCH MCHC RDW Plt Count MPV Immature Gran % (Auto) Neut % (Auto) Lymph % (Auto) Pickett % (Auto) Eos % (Auto) Baso % (Auto) Lymph # (Auto) Pickett # (Auto) Eos # (Auto) Baso # (Auto) Abs Immat Gran (auto) Absolute Neuts (auto) Absolute Nucleated RBC Nucleated RBC % LA PTT Screen dRVVT Screen dRVVT Additional Test Lupus Anticoag Interp Hemoglobin A1c TSH Free T4 0.92 Urine Opiates Screen Negative Urine Methadone Screen Negative Ur Barbiturates Screen Negative Ur Phencyclidine Scrn Negative Ur Amphetamine Screen Negative U Benzodiazepines Scrn Negative Urine Cocaine Screen Negative U Cannabinoids Screen Negative Beta-2-GPI IgG Ab Pending Beta-2-GPI IgA Ab Pending Beta-2-GPI IgM Ab Pending Phosphatidylserine Ab Phosphatidylserine IgG Phosphatidylserine IgA Phosphatidylserine IgM Anti-Cardiolipin IgG Ab Anti-Cardiolipin IgA Ab Anti-Cardiolipin IgM Ab Pending RPR Pending CMV IgG Ab Pending CMV IgM Ab Pending HSV I Specific Ab Pending HSV II Specific Ab Pending Parvovirus B19 IgG Intp Pending Parvovirus B19 IgM Intp Pending Rubella IgG Antibody 39.2 Toxoplasma IgG Ab Pending Toxoplasma IgM Ab Pending Add Miscellaneous Test Pending Blood Type O Negative Antibody Screen Negative 08/27/23 08/27/23 08/27/23 18:14 18:14 18:14 WBC 9.8 RBC 4.47 Hgb 13.8 Hct 40.9 MCV 91.5 MCH 30.9 MCHC 33.7 RDW 12.6 Plt Count 269 MPV 11.3 H Immature Gran % (Auto) 0.4 Neut % (Auto) 64.0 Lymph % (Auto) 29.1 Pickett % (Auto) 5.2 Eos % (Auto) 1.1 Baso % (Auto) 0.2 Lymph # (Auto) 2.85 Pickett # (Auto) 0.5 Eos # (Auto) 0.1 Baso # (Auto) 0.0 Abs Immat Gran (auto) 0.04 H Absolute Neuts (auto) 6.3 Absolute Nucleated RBC 0.0 Nucleated RBC % 0.0 LA PTT Screen Pending dRVVT Screen Pending dRVVT Additional Test Pending Lupus Anticoag Interp Pending Hemoglobin A1c TSH 1.390 Free T4 Urine Opiates Screen Urine Methadone Screen Ur Barbiturates Screen Ur Phencyclidine Scrn Ur Amphetamine Screen U Benzodiazepines Scrn Urine Cocaine Screen U Cannabinoids Screen Beta-2-GPI IgG Ab Pending Beta-2-GPI IgA Ab Pending Beta-2-GPI IgM Ab Pending Phosphatidylserine Ab Pending Phosphatidylserine IgG Pending Phosphatidylserine IgA Pending Phosphatidylserine IgM Pending Anti-Cardiolipin IgG Ab Pending Pending Anti-Cardiolipin IgA Ab Pending Pending Anti-Cardiolipin IgM Ab Pending RPR CMV IgG Ab CMV IgM Ab HSV I Specific Ab HSV II Specific Ab Parvovirus B19 IgG Intp Parvovirus B19 IgM Intp Rubell
--- NOTE | 2023-08-28 07:13 | PM.OBPNLAB ---
Pain Control Date/time seen: 08/28/23 07:13 Assessment and Plan Comments: CNM at bedside. One small ping pong ball sized clot present. No active bleeding. Placenta remains undelivered. Fundal massage and vaginal exam completed. Cervix 2cm, moderate consistency. Umbilical cord palpated but unable to feel placenta at internal os. Discussed plan of care with pt. Encouraged to call RN for any sudden increase in cramping or gushes. Sign off given to Dr. Helton at nurses station. Partner remains supportive and at bedside. Discussed next steps and expectations. Discussed need for Rhogam vaccine prior to discharge. Recommend appointment in the office in one week once she is discharged from the hospital.
[2023-08-28] MEDS: OXYTOCIN 30 UNITS/NS 500 ML 30 UNITS/500 ML BAG 999 UNITS IV CONT (08:35)
[2023-08-28 11:12] LABS: Rapid Plasma Reagin Non-Reactive (NonReactive)
[2023-08-28] MEDS: RHO(D) IMMUNE GLOBULIN 300 MCG/2 ML SYRINGE IM (15:46)
[2023-08-28 17:05] LABS: HIV 1/2 Ab P24 Ag Result Negative (Negative)
[2023-08-31 15:58] LABS: CMV IgM Antibody <30.00 AU/mL (<30.00)
[2023-09-01 14:38] LABS: Toxoplasma IgG Antibody <7.20 IU/mL (<7.20)
[2023-09-01 21:47] LABS: Anti Cardio Antibody IgM <2.0 MPL-U/mL (<20.0); Anti Cardiolipin Antibody IgA <2.0 APL-U/mL (<20.0); Anti Cardiolipin Antibody IgG <2.0 GPL-U/mL (<20.0)
[2023-09-02 02:58] LABS: Anti Cardio Antibody IgM <2.0 MPL-U/mL (<20.0); Anti Cardiolipin Antibody IgA <2.0 APL-U/mL (<20.0); Anti Cardiolipin Antibody IgG <2.0 GPL-U/mL (<20.0); PS/PT AB IgG <9 U (<=30); PS/PT AB IgM 10 U (<=30)
[2023-09-02 13:56] LABS: Toxoplasma IgM Antibody <8.00 AU/mL (<8.00)
[2023-09-03 08:14] LABS: CMV IgG Antibody <0.60 U/mL (<0.60)
[2023-09-03 22:17] LABS: Lupus dRVVT Screen 45 sec (<=45); PTT-LA Screen 35 sec (<=40)
== END 2023-08-28 16:43 | disposition home or self-care (01) | DRG 779 ==
PROVIDERS: Admitting Provider Obstetrics & Gynecology Gynecology; PCP Family Medicine; Visit Provider Obstetrics & Gynecology Gynecology
DX: O02.1 Missed abortion (principal); O72.2 Delayed and secondary postpartum hemorrhage; Z3A.16 16 weeks gestation of pregnancy
CPT/HCPCS: 36415; 76815; 80307; 83036; 84439; 84443; 85025; 85461; 85613; 85730; 86146; 86147; 86592; 86644; 86645; 86695; 86696; 86703; 86747; 86762; 86777; 86850; 86900; 86901; 88305; 88307; 90384; A9270; G0378; G0379; G0432; J2590; J2790

== ENCOUNTER 2024-01-05 10:51 | Outpatient (CLI) | payer OTHER, SELFPAY ==
--- NOTE | ~2024-01-05 | US_ITS ---
EXAMINATION: US OB <=14 wk fetus w TV INDICATION: care for patient with recurrent loss. TECHNIQUE: Sonography of the pelvis was performed by transabdominal and transvaginal techniques. COMPARISON: 08/27/2023. RESULT: Uterus: 10.6 x 6.6 x 7.7 cm. Anteverted. Homogenous myometrium. Intrauterine gestational sac: Single present. Yolk sac: 0.6 cm . Embryo: Single present. [place] rump length: 1.97 cm, corresponding gestational age 8 weeks, 4 days. Gestational heart rate: present 172 bpm. Subgestational hematoma: Absent . Right ovary: 2.2 x 1.6 x 2.4 cm. Vascular flow is present. 1.4 cm simple cyst. Left ovary: 3.2 x 1.9 x 1.8 cm. Vascular flow is present. No adnexal mass. Pelvis free fluid: None. IMPRESSION: Single, live intrauterine gestation. Estimated Gestational Age: 8 weeks, 4 days by crown rump length. RODO by ultrasound 08/12/2024. Reviewed, dictated and finalized at location K. IMPRESSION: Single, live intrauterine gestation. Estimated Gestational Age: 8 weeks, 4 days by crown rump length. RODO by ultras ound 08/12/2024.
== END 2024-01-05 10:52 | disposition home or self-care (01) ==
PROVIDERS: PCP Family Medicine; Visit Provider Obstetrics & Gynecology Gynecology
DX: O26.21 Pregnancy care for patient with recurrent pregnancy loss, first trimester (principal); Z3A.00 Weeks of gestation of pregnancy not specified
CPT/HCPCS: 76801; 76817

== ENCOUNTER 2024-03-31 08:58 | Outpatient (CLI) | payer OTHER, SELFPAY ==
--- NOTE | ~2024-03-31 | US_ITS ---
EXAMINATION: US OB /maternal detail DATE: 03/31/2024 10:32 INDICATION: Encounter for screening. TECHNIQUE: Real-time ultrasound of the pelvis was performed. COMPARISON: Ultrasound 01/05/2024 FINDINGS: There is a single living fetus in variable presentation. The placenta is anterior, 5.4 cm from the c ervix. heart rate is 156 beats per minute (bpm). The amniotic fluid index is 14.1 cm, which is normal. The cervical length is 3.3 cm on transabdominal images, which is normal. The following biometric data were obtained: Biparietal diameter (BPD): 4.8 cm; head circumference (HC): 18.5 cm; abdominal circumference (AC): 16 .3 cm; femur length (FL): 3.6 cm. These measurements are concordant. Estimated weight is 418 g +/- 63 g, which correlates with the 72nd percentile when 08/12/24 is u sed as estimated date of delivery. As single measurements, these parameters are each equal to the following estimated gestational ages: BPD: 20 weeks 4 days. HC: 20 weeks 6 days. AC: 21 weeks 3 days. FL: 21 weeks 4 days. estimated gestational age based solely on measurements from this exam is 21 weeks 1 days +/- 1 weeks 3 days. The cerebral ventricles, cerebellum, cisterna magna, nuchal fold, and spine are normal. The heart is normal. The diaphragm, stomach, kidneys, and bladder are normal. There are two umbilical arteries to yield a 3-vessel cord. The cord insertion is normal. IMPRESSION: 1. Single living fetus in variable presentation. 2. Estimated weight is 418 g +/- 63 g, which correlates with the 72nd percentile when 08/12/24 is used as estimated date of delivery. This date was set by ultrasound on 01/05/2024. 3. Normal anatomic survey. Reviewed, dictated and finalized at location A. IMPRESSION: 1. Single living fetus in variable presentation. 2. Estimated weight is 418 g +/- 63 g, which correlates with the 72nd pe rcentile when 08/12/24 is used as estimated date of delivery. This date was set by ultrasound on 01/05/2024. 3. Normal anatomic survey.
== END 2024-03-31 08:59 | disposition home or self-care (01) ==
PROVIDERS: PCP Family Medicine; Visit Provider Advanced Practice Midwife
DX: Z36.9 Encounter for antenatal screening, unspecified (principal); Z3A.00 Weeks of gestation of pregnancy not specified
CPT/HCPCS: 76805

== ENCOUNTER 2024-05-06 15:34 | Outpatient (CLI) | payer OTHER, SELFPAY ==
--- NOTE | ~2024-05-06 | US_ITS ---
EXAMINATION: US OB <= 14 weeks fetus DATE: 05/06/2024 23:14 BOAT OPERATOR INDICATION: Size greater than dates COMPARISON: 03/31/2024 TECHNIQUE: Real-time transabdominal obstetric ultrasound. FINDINGS: 3 para 2 Estimated date of delivery by last menstrual period is 08/11/2024 The cervix measures 4.6 cm, and is closed. A single intrauterine gestation is identified in variable presentation with the placenta anterior. Amniotic fluid index measures 13.9 cm (normal range 9.7 to 22.3 cm). The following biometric data were obtained: Biparietal diameter (BPD): 6.5 cm corresponding to an approximate gestational age of 26 weeks and 2 d ays; head circumference (HC): 24.4 cm corresponding to an approximate gestational age of 26 weeks and 4 da ys; abdominal circumference (AC): 21.7 cm corresponding to an approximate gestational age of 26 weeks and 1 day; femur length (FL): 4.7 cm corresponding to an approximate gestational age of 25 weeks and 5 days These measurements are concordant. Estimated weight is 886 g +/- 133 g, which correlates with the 40.7 percentile when is used as estimated date of delivery. estimated gestational age based solely on measurements from this exam is 26 weeks 1 day +/- 1 w [place] 6 days. Estimated date of delivery by ultrasound is 08/11/2024 IMPRESSION: Single intrauterine gestation with an approximate gestational age of 26 weeks and 1 day, with c ardiac activity identified. Reviewed, dictated and finalized at location A. OPERATOR IMPRESSION: Single intrauterine gestation with an approximate gestational age of 26 weeks a nd 1 day, with cardiac activity identified.
== END 2024-05-06 15:35 | disposition home or self-care (01) ==
PROVIDERS: PCP Family Medicine; Visit Provider Obstetrics & Gynecology Gynecology
DX: O36.63X0 Maternal care for excessive fetal growth, third trimester, not applicable or unspecified (principal); Z3A.00 Weeks of gestation of pregnancy not specified
CPT/HCPCS: 76801

== ENCOUNTER 2024-06-07 07:19 | Outpatient (CLI) | payer OTHER, SELFPAY ==
[2024-06-07 09:14] LABS: Hematocrit 35.8 % (37.0-47.0); Hemoglobin 12.2 g/dL (12.0-15.0)
[2024-06-07 09:26] LABS: Glucose 1 Hour PP 50gm Dose 142 mg/dL
[2024-06-07 11:25] LABS: Vitamin D 25 Hydroxy 47.2 ng/mL
[2024-06-07 11:27] LABS: Rapid Plasma Reagin Non-Reactive (NonReactive)
[2024-06-07] MEDS: RHO(D) IMMUNE GLOBULIN 300 MCG/2 ML SYRINGE IM (11:31)
[2024-06-07 11:52] LABS: HIV 1/2 Ab P24 Ag Result Negative (Negative)
--- OUTSIDE RECORDS SUMMARY | 2024-06-12 17:15 | XMS_ITS | Encounter Summary ---
Author Organization [facility] Address [address] [place] [address] Care Team Providers Care Registered Nurse Renal Name Role Phone Unavailable Primary Care Provider Unavailabl e Reason for Visit * Reason Comments Bladder infection Encounter Details Date Type Department Care Team (Late st Contact Info) Description 08/03/2020 2:30 PM TOWER CRANE OPERATOR Office Visit [facility] AT [address] [phone] Provider, Denny Reynoso [place] Acute cystitis with hematuria (Primary Dx) Social History Tobacco Use Types Packs/Day Years Used Date Smoking Tobacco: Never Assessed Sex and Gender Information Value Date Recorded Sex Assigned at Not on file Gender Identity Not on file Sexual Orientation Not on file COVID-19 Exposure Response Date Recorded In the last month, have you been in contact with someone who was confirmed or suspected to have Coronavirus / COVID-19? No / Unsure 08/03/2020 2:11 PM TOWER CRANE OPERATOR documented as of this encounter Last Filed Vital Signs Vital Sign Reading Time Taken Comments Blood Pressure 98/60 08/03/2020 2:18 PM TOWER CRANE OPERATOR Pulse 72 08/03/2020 2:18 PM TOWER CRANE OPERATOR Temperature 36.7 ??C (98 ??F) 08/03/2020 2:18 PM TOWER CRANE OPERATOR Respiratory Rate 18 08/03/2020 2:18 PM TOWER CRANE OPERATOR Oxygen Saturation - - Inhaled Oxygen Concentration - - Weight 68 kg (150 lb) 08/03/2020 2:18 PM TOWER CRANE OPERATOR Height 165.1 cm (5' 5 ) 08/03/2020 2:18 PM TOWER CRANE OPERATOR Body Mass Index 24.96 08/03/2020 2:18 PM TOWER CRANE OPERATOR documented in this encounter Patient Instructions * Patient Instructions* Anabel Sierra APRN-CNP - 08/03/2020 2:41 PM TOWER CRANE OPERATOR -Take all medications as prescribed. -Push fluids, especially water. This also helps prevent future infections. -Urinate when you feel the urge. Do not hold your urine. Urinate as soon as you feel you have to. -Cranberry juice as been shown to promote healing, use at your discretion. -Make sure to always wipe from front to back after urinating. -If you are sexually active make sure to urinate Before AND After sex to help prevent bladder infections. -Avoid intercourse until your symptoms are resolved for one week. -Do not drink alcohol, caffeine, and citrus juices. These can irritate your bladder and increase your symptoms. Seek care (go to Urgent Care or ER) immediately if: ?? You are urinating very little or not at all. ?? You are vomiting. ?? You have a high fever with shaking chills. ?? You have side or back pain that gets worse. Contact your primary care doctor or [employer] if: ?? You have a fever. ?? You have white or yellow discharge from your vagina. ?? You do not feel better after 2 days of taking antibiotics. ?? You have questions or concerns about your condition or care. R CRANE OPERATOR documented in this encounter Progress Notes * Anabel Sierra APRN-CNP - 08/03/2020 2:30 PM CST Subjective: C[place] is a 20 year old female who complains of burning with urination, hematuria for 2 days. Patient denies back pain, vaginal discharge, N/V, fever, chills. There is not any concern of sexual abuse. There is not a history of trauma to the genital area. Patient does have a history of recurrent UTI. Patient does not have a history of pyelonephritis. Patient had a UTI about 3 weeks ago and 6 weeks ago, treated at her truck chauffeur Dr. Tavarez with an unknown antibiotic, possibly bactrim. Patients PCP is No primary care provider on file. No past medical history on file. No family history on file. Current Outpatient Medications Medication Sig Dispense Refill ??? nitrofurantoin monohyd macro crystals (MACROBID) 100 MG capsule Take 1 (one) capsule by mouth 2times daily with morning and evening meal for 7 days 14 capsule 0 ??? Norgestimate-Eth Estradiol (SPRINTEC 28 PO) No current facility-administered medications for this visit. Allergies Allergen Reactions ??? Augmentin Rash Social History Socioeconomic History ??? Marital status: Single Spouse name: Not on file ??? Number of children: Not on file ??? Years of education: Not on file ??? Highest education level: Not on file Occupational History ??? Not on file Social Needs ??? Financial resource strain: Not on file ??? Food insecurity Worry: Not on file Inability: Not on file ??? Transportation needs Medical: Not on file Non-medical: Not on file Tobacco Use ??? Smoking status: Not on file Substance and Sexual Activity ??? Alcohol use: Not on file ??? Drug use: Not on file ??? Sexual activity: Not on file Lifestyle ??? Physical activity Days per week: Not on file Minutes per session: Not on file ??? Stress: Not on file Relationships ??? Social connections Talks on phone: Not on file Gets together: Not on file Attends adventist service: Not on file Active member of club or organization: Not on file Attends meetings of clubs or organizations: Not on file Relationship status: Not on file ??? Intimate partner violence Fear of current or ex partner: Not on file Emotionally abused: Not on file Physically abused: Not on file Forced sexual activity: Not on file Other Topics Concern ??? Not on file Social History Narrative ??? Not on file Review of Systems Constitutional: Negative Ears, nose, mouth, and throat: Negative Respiratory: Negative Cardiovascular: Negative Gastrointestinal: Negative Genitourinary:Positive for dysuria and hematuria Neurological: Negative Objective: BP 98/60 Pulse 72 Temp 98 ??F (36.7 ??C) Resp 18 Ht 1.651 m (5' 5 ) Wt 68 kg (150 lb) BMI 24.96 kg/m2 Exam: General appearance: alert, cooperative, no distress Nodes: no cervical adenopathy Back: no deformity or tenderness Lungs: breath sounds normal and symmetric; no rales or wheezes Heart: regular rhythm, normal S1 and S2, without murmurs, gallops or rubs Abdomen: soft without mass, non-tender, with normal bowel sounds Assessment: Encounter Diagnosis Name Primary? Acute cystitis with hematuria Yes Plan: We will call with culture results -Take all medications as prescribed. -Push fluids, especially water. This also helps prevent future infections. -Urinate when you feel the urge. Do not hold your urine. Urinate as soon as you feel you have to. -Cranberry juice as been shown to promote healing, use at your discretion. -Make sure to always wipe from front to back after urinating. -If you are sexually active make sure to urinate Before AND After sex to help prevent bladder infections. -Avoid intercourse until your symptoms are resolved for one week. -Do not drink alcohol, caffeine, and citrus juices. These can irritate your bladder and increase your symptoms. Seek care (go to Urgent Care or ER) immediately if: ?? You are urinating very little or not at all. ?? You are vomiting. ?? You have a high fever with shaking chills. ?? You have side or back pain that gets worse. Contact your primary care doctor or [employer] if: ?? You have a fever. ?? You have white or yellow discharge from your vagina. ?? You do not feel better after 2 days of taking antibiotics. ?? You have questions or concerns about your condition or care. Orders Placed This Encounter ??? CULTURE URINE Order Specific Question: Release to patient Answer: Immediate ??? URINALYSIS AUTO - POINT OF CARE (AMB) STL Order Specific Question: Release to patient Answer: Immediate ??? nitrofurantoin monohyd macro crystals (MACROBID) 100 MG capsule Sig: Take 1 (one) capsule by mouth 2 times daily with morning and evening meal for 7 days Dispense: 14 capsule Refill: 0 Recent Results (from the past 24 hour(s)) URINALYSIS AUTO - POINT OF CARE (AMB) STL Collection Time: 08/03/20 2:41 PM Result Value Ref Range Clarity UA POCT cloudy Color UA POCT yellow Leukocyte UA 125 Negative Nitrite UA POCT neg Negative Urobilinogen UA 0.2 0.1 - 1.0 Protein UA POCT 100 Negative pH UA 5.0 5.0 - 8.0 pH units Blood UA +++ Negative Specific [place] UA POCT 1.020 1.002 - 1.030 Ketone UA 160 Negative Bilirubin UA POCT neg Negative Glucose UA neg Negative Expiration Date 07/28/2020 Lot # [id number] QC Verified Yes Yes R CRANE OPERATOR documented in this encounter Plan of Treatment Not on file documented as of this encounter Procedures Procedure Name Priority Date/Time Associated Diagnosis Comments CULTURE URINE Routine 08/03/2020 2:47 PM TOWER CRANE OPERATOR Acute cystitis with hematuria URINALYSIS AUTO - POINT OF CARE (AMB) STL Routine 08/03/2020 2:41 PM TOWER CRANE OPERATOR Acute cystitis with hematuria documented in this encounter Results * CULTURE URINE (08/03/2020 2:47 PM TOWER CRANE OPERATOR) Urine Culture Routine Final report [facility] ACCOUNT BILL Result 1 [facility] ACCOUNT BILL Comment: Mixed urogenital rosales 10,000-25,000 colony forming units per mL Urine URINE SPECIMEN OBTAINED BY CLEAN CATCH PROCEDURE / Unknown 08/03/2020 2:47 PM TOWER CRANE OPERATOR 08/03/2020 Narrative Resulting Agency Comment Lab Testing performed at: [facility] [address] ??[facility] [phone] [facility] - MICROBIOL OGY ORDERABLES [facility] ACCOUNT BILL [address] [place] [address] * URINALYSIS AUTO - POINT OF CARE (AMB) STL (08/03/2020 2:41 PM TOWER CRANE OPERATOR) Clarity UA POCT cloudy [facility] Color UA POCT yellow [facility] Leukocyte UA 125 Negative [facility] [place] Nitrite UA POCT neg Negative [facility] Urobilinogen UA 0.2 0.1 - 1.0 [facility] Protein UA POCT 100 Negative [facility] pH UA 5.0 5.0 - 8.0 pH units [facility] Blood UA +++ Negative [facility] Specific [place] UA POCT 1.020 1.002 - 1.030 [facility] Ketone UA 160 Negative [facility] Bilirubin UA POCT neg Negative [facility] Glucose UA neg Negative [facility] Expiration Date 07/28/2020 [facility] Lot # [id number] [facility] QC Verified Yes Yes [facility] Urine URINE / Unknown 08/03/2020 2 :41 PM TOWER CRANE OPERATOR Anabel Sierra APRN-[facility] - POINT OF CARE ORDERABLES [facility] [address] [phone] documented in this encounter Visit Diagnoses Diagnosis Acute cystitis with hematuria- Primary Acute cystitis documented in this encounter
--- OUTSIDE RECORDS SUMMARY | 2024-06-12 17:15 | XMS_ITS | Encounter Summary ---
Author Organization [facility] Address [address] [place] [address] Care Team Providers Care Harness Worker Name Role Phone Unavailable Primary Care Provider Unavailabl e Encounter Details Date Type Department Care Team (Latest Contact Info) Description 12/04/2020 Travel Social History Tobacco Use Types Packs/Day Years Used Date Smoking Tobacco: Never Smokeless Tobacco: Never PHQ-2 Answer Date Recorded PHQ2 TOTAL SCORE 0 12/04/2020 Sex and Gender Information Value Date Recorded Sex Assigned at Not on file Gender Identity Not on file Sexual Orientation Not on file COVID-19 Exposure Response Date Recorded In the last month, have you been in contact with someone who was confirmed or suspected to have Coronavirus / COVID-19? No / Unsure 12/04/2020 10:32 AM CDT documented as of this encounter Plan of Treatment Not on file documented as of this encounter Visit Diagnoses Not on filedocumented in this encounter
--- OUTSIDE RECORDS SUMMARY | 2024-06-12 17:15 | XMS_ITS | Clinical Summary ---
Author Organization [facility] Address [address] [place] [address] Care Team Providers Care Financial Reporting Accountant Name Role Phone Adriana Posey MD Primary Care Provider Source Comments [facility],non-[facility] Affiliates and Associated Physician Practices is amultiple site organization consisting of ambulatory clinics and hospital sitesin [place], [place], [place] and [place]. This disclosure is being madepursuant to the Care Everywhere program and may not contain all information available regarding this patient. Last updated 18.[facility] Allergies Active Allergy Reactions Criticality Noted Date Comments Augmentin Rash Medium 08/03/2020 Medications * Be aware that medications may not be up to date on this document. Alwaysverify current medications with the patient. Medication Sig Dispensed Refills Start Date End Date Status Norgestimate-Eth Estradiol (SPRINTEC 28 PO) Active predniSONE (DELTASONE) 20 MG tablet Take 3 tabs on days 1-5, then 2 tabs on days 6-10, then 1 tab on days 11-15 30 tablet 12/04/2020 Active triamcinolone acetonide (KENALOG) 0.1 % ointment Apply to affected area 2 times daily 80 g 12/04/2020 Active Social History Tobacco Use Types Packs/Day Years Used Date Smoking Tobacco: Never Smokeless Tobacco: Never Tobacco Cessation:Counseling Given: Yes PHQ-2 Answer Date Recorded PHQ2 TOTAL SCORE 0 12/04/2020 Sex and Gender Information Value Date Recorded Sex Assigned at Not on file Gender Identity Not on file Sexual Orientation Not on file Last Filed Vital Signs Vital Sign Reading Time Taken Comments Blood Pressure 118/70 12/04/2020 11:08 AM CDT Pulse 81 12/04/2020 11:08 AM CDT Temperature 36.8 ??C (98.2 ??F) 12/04/2020 11:08 AM C DT Respiratory Rate 16 12/04/2020 11:08 AM CDT Oxygen Saturation 98% 12/04/2020 11:08 AM CDT Inhaled Oxygen Concentration - - Weight 67.1 kg (148 lb) 12/04/2020 11:08 AM CDT Height 165.1 cm (5' 5 ) 12/04/2020 11:08 AM CDT Body Mass Index 24.63 12/04/2020 11:08 AM CDT Plan of Treatment Health Maintenance Due Date Last Done Comments PAP SMEAR 1998 HIV SCREENING 2013 HPV VACCINE (1 - 3-dose series) 2013 CHLAMYDIA/GONORRHEA SCREENING 2014 HEPATITIS C SCREENING 06/25/2016 DTAP/TDAP/TD VACCINES (1 - Tdap) 2017 HEPATITIS B VACCINE (1 of 3 - 19+ 3-dose series) 2017 DEPRESSION SCREENING 06/23/2023 COVID-19 VACCINE (1 - 2023-2 5 season) 2024 INFLUENZA VACCINE (#1) 2024 03/17/2013 ZOSTER VACCINE (1 of 2) 2048 HIB VACCINE Aged Out No longer eligi ble based on patient's age to complete this topic MENINGOCOCCAL VACCINE Aged Out No rupali luis miguel eligible based on patient's age to complete this topic PNEUMOCOCCAL VACCINE Aged Out No long er eligible based on patient's age to complete this topic Care Teams Financial Reporting Accountant Relationship Specialty Start Date End Date Adriana Posey MD [address] [place] [id number] PCP - General 08/05/22
--- OUTSIDE RECORDS SUMMARY | 2024-06-12 17:15 | XMS_ITS | Referral Summary ---
Author Organization [facility] Address [address] [place] [address] Care Team Providers Care C Developer Name Role Phone Adriana Posey MD Primary Care Provider [phone] Source Comments [facility] Aff[facility]ates and Associated Physician Practices is amultiple site organization consisting of ambulatory clinics and hospital sitesin [place] and [place]. This disclosure is being madepursuant to the Care Everywhere program and may not contain all information available regarding this patient. Last updated 18.[facility] Allergies Active Allergy Reactions Criticality Noted Date [...] 12/04/2020 11:08 AM CDT Plan of Treatment Not on file Care Teams C Developer Relationship Specialty Start Date End Date Adriana Posey MD [address] [place] [address] [place] [phone] PCP - General 08/05/22
--- OUTSIDE RECORDS SUMMARY | 2024-06-12 17:15 | XMS_ITS | Encounter Summary ---
Author Organization [facility] Address [address] [place] [address] Care Team Providers Care President & Ceo Name Role Phone Unavailable Primary Care Provider Unavailabl e Encounter Details Date Type Department Care Team (Latest Contact Info) Description 08/03/2020 Travel Social History Tobacco Use Types Packs/Day [...] COVID-19? No / Unsure 08/03/2020 2:11 PM MECHANICAL MANAGER documented as of this encounter Plan of Treatment Not on file documented as of this encounter Visit Diagnoses Not on filedocumented in this encounter
--- OUTSIDE RECORDS SUMMARY | 2024-06-12 17:15 | XMS_ITS | Encounter Summary ---
Author Organization [facility] Address [address] [place] [address] Care Team Providers Care Fire Control Assistant Name Role Phone Unavailable Primary Care Provider Unavailabl e Reason for Visit * Reason Onset Date Comments Follow-up 12/06/2020 Encounter Details Date Type Department Care Team ([facility] st Contact Info) Description 12/06/2020 Telephone [facility] [address] [phone] Jb Jennings APRN-CNP [address] [place] [phone] Follow-up Social History Tobacco Use Types Packs/Day Years [...] AM CDT documented as of this encounter Miscellaneous Notes * Telephone Encounter - Jb Jennings APRN-CNP - 12/06/2020 9:22 AM CDT DEBUG TECHNICIAN called for f/u. Message, voice mail not set up, Unable to leave message. documented in this encounter Plan of Treatment Not on file documented as of this encounter Visit Diagnoses Not on filedocumented in this encounter
--- OUTSIDE RECORDS SUMMARY | 2024-06-12 17:15 | XMS_ITS | Encounter Summary ---
Author Organization [facility] Address [address] [place] [address] Care Team Providers Care Manager Cardiac Cath Name Role Phone Unavailable Primary Care Provider Unavailabl e Reason for Visit * Reason Comments Rash Encounter Details Date Type Department Care Team ([facility] st Contact Info) Description 12/04/2020 11:00 AM CDT Office Visit [facility] AT [address] [phone] Provider, Denny Reynoso [facility] Contact dermatitis due to plants, except food, unspecified contact dermatitis type (Primary Dx) Social History Tobacco Use Types [...] AM CDT documented as of this encounter Last Filed [...] Mass Index 24.63 12/04/2020 11:08 AM CDT documented in this encounter Patient Instructions * Patient Instructions* Philly Hyde, HIGH PRESSURE BOILER OPERATOR-NURSING CONSULTANT - 12/04/2020 11:17 AM CDT Patient Education Poison Diana WHAT YOU NEED TO KNOW: What is poison diana? Poison diana is a plant that can cause an itchy, uncomfortable rash on your skin.Poison diana grows as a shrub or vine in [place], [place], and areas of thick underbrush. It has 3 bright green leaves on each stem that turn red in . What causes a poison diana rash? A poison diana rash can occur when the plant oil soaks into your skin.You may get a rash if you touch: ?? Any part of the poison diana plant: This includes the leaves, stem, vine, roots, garcia, and berries. ?? Pets with poison diana on their fur: They can spread poison diana oil to your skin and to items inside your car and house. ?? Items with poison diana oil on them: This includes clothing, shoes, camping or sports equipment, or outdoor tools. ?? A person with poison diana oil on him: Poison diana oil may be on their skin or clothing. What can I do if I have been exposed to poison diana? If you think you have touched poison diana, rinseyour skin with cool water right away. Then, wash it with soap and water. Rinse your skin well. Do not use hot water because it may cause the oil to spread on your skin. You may also put rubbing alcohol or a solution of 1/2 alcohol and 1/2 water on your skin. This may help your rash to be less severe when it breaks out on your skin. What are the signs and symptoms of a poison diana rash? ?? A red, swollen, itchy rash that develops within hours to days of exposure to poison diana ?? A rash that appears in thick patches or thin lines where the plant leaves rubbed against your skin ?? Blisters that may leak clear to yellow liquid, then crust over and become scaly How is a poison diana rash treated? ?? Antiseptic or drying creams or ointments: Your healthcare provider may recommend medicine to dryout the rash and decrease the itching. These products may be available without a doctor's order. ?? Steroids: This medicine helps decrease itching and inflammation. It can be given as a cream to apply to your skin or as a pill. ?? Antihistamines: This medicine may help decrease itching and help you sleep. It is available without a doctor's order. How can I manage my symptoms? ?? Keep your rash clean and dry: Wash it with soap and water. Gently pat it dry with a clean towel. ?? Try not to scratch or rub your rash: This can cause your skin to become infected. ?? Use a compress on your rash: Dip a clean washcloth in cool water. Wring it out and place it on your rash. Leave the washcloth on your skin for 15 minutes. Do this at least 3 times per day. ?? Take a cornstarch or oatmeal bath: If your rash is too large to cover with wet washcloths, take 3 or 4 cornstarch baths daily. Mix 1 pound of cornstarch with a little water to make a paste. Add the paste to a tub full of water and mix well. You may also use colloidal oatmeal in the bath water. Use lukewarm water. Avoid hot water because it may cause your itching to increase. Can a poison diana rash be spread by scratching or touching it? You cannot spread poison diana by touching your rash or the liquid from your blisters. Poison diana is spread only if you scratch your skin while it still has oil on it. You may think your rash is spreading because new rashes appear over a number of days. This happens because areas covered by thin skin break out in a rash first. Your face or forearms may develop a rash before thicker areas, such as the palms of your hands. How can I prevent a poison diana rash? ?? Wear skin protection: Wear long pants, a long-sleeved shirt, and gloves. Use a skin block lotionto protect your skin from poison diana oil. You can find this at a drugstore without a prescription. ?? Wash clothing after possible exposure: If you think you have been near a poison diana plant, wash the clothes you were wearing separately from other clothes. Rinse the washing machine well after youtake the clothes out. Scrub boots and shoes with warm, soapy water. Dry clean items and clothing that you cannot wash in water. Poison diana oil is sticky and can stay on surfaces for a long time. It can cause a new rash even years later. ?? Bathe your pet: Use warm water and shampoo on your pet's fur. This will prevent the spread of oil to your skin, car, and home. Wear long sleeves, long pants, and gloves while washing pets or any items that may have oil on them. ?? Reduce exposure to poison diana: Do not touch plants that look like poison diana. Keep your yard free of poison diana. While protecting your skin, remove the plant and the roots. Place them in a plasticbag and seal the bag tightly. ?? Do not burn poison diana plants: This can spread the oil through the air. If you breathe the oil into your lungs, you could have swelling and serious breathing problems. Oil that clings to the fire indy can land on your skin and cause a rash. When should I contact my healthcare provider? ?? You have pus, soft yellow scabs, or tenderness on the rash. ?? The itching gets worse or keeps you awake at night. ?? The rash covers more than 1/4 of your skin or spreads to your eyes, mouth, or genital area. ?? The rash is not better after 2 to 3 weeks. ?? You have tender, swollen glands on the sides of your neck. ?? You have swelling in your arms and legs. ?? You have questions or concerns about your condition or care. When should I seek immediate care or call 911? ?? You have a fever. ?? You have redness, swelling, and tenderness around the rash. ?? You have trouble breathing. CARE AGREEMENT: You have the right to help plan your care. Learn about your health condition and how it may be treated. Discuss treatment options with your healthcare providers to decide what care you want to receive. You always have the right to refuse treatment. The above information is an paid search specialist only. It is not intended as medical advice for individual conditions or treatments. Talk to your doctor, nurse or pharmacist before following any medical regimen to see if it is safe and effective for you. ?? Copyright [employer] 2020 Information is for End User's use only and may not be sold, redistributed or otherwise used for commercial purposes. All illustrations and images included in CareNotes?? are the copyrighted property of [employer], [employer]. or [employer] documented in this encounter Progress Notes * Philly Hyde APRN-CNP - 12/04/2020 11:00 AM CDT Images from the original note were not included. Subjective: Cierra Beach is a 20 year old female who presents for evaluation: Chief Complaint Patient presents with ??? Rash Primary Care Physician is No primary care provider on file.. Symptoms include red itchy rash that started behind her right knee and has now spread to her legs, abdomen, back, arms and neck. Reports she was in the [facility] last weekend with her boyfriend and his cousin and the cousin had poison diana. She is very allergic to poison diana. She was sitting in the chair where he was sitting and thought maybe the oils transferred to her from the chair. Onset of symptoms was 5 days ago, gradually worsening since that time. Denies fever or chills. No swelling in the throat or difficulty swallowing. She is drinking plenty of fluids. Evaluation to date: none. Treatment to date: benadryl., triamcinolone cream, OTC poison diana cream Allergies Allergen Reactions ??? Augmentin Rash Outpatient Medications Marked as Taking for the 12/04/20 encounter (Office Visit) with Provider[facility] Medication Sig ??? Norgestimate-Eth Estradiol (SPRINTEC 28 PO) ??? predniSONE (DELTASONE) 20 MG tablet Take 3 tabs on days 1-5, then 2 tabs on days 6-10, then 1 tab on days 11-15 ??? triamcinolone acetonide (KENALOG) 0.1 % ointment Apply to affected area 2 times daily Past Medical History: Diagnosis Date ??? NEGATIVE PAST MEDICAL HISTORY - SEE PROBLEM LIST There is no problem list on file for this patient. Past Surgical History: Procedure Laterality Date ??? [place] Tooth Extraction Social History Socioeconomic History ??? Marital status: Single Spouse name: Not on file ??? Number of children: Not on file ??? Years of education: Not on file ??? Highest education level: Not on file Occupational History ??? Not on file Tobacco Use ??? Smoking status: Never Smoker ??? Smokeless tobacco: Never Used Substance and Sexual Activity ??? Alcohol use: Not on file ??? Drug use: Not on file ??? Sexual activity: Not on file Other Topics Concern ??? Not on file Social History Narrative ??? Not on file Social Determinants of Health Financial Resource Strain: ??? Difficulty of Paying Living Expenses: Food Insecurity: ??? Worried About Running Out of Food in the Last Year: ??? Ran Out of Food in the Last Year: Transportation Needs: ??? Lack of Transportation (Medical): ??? Lack of Transportation (Non-Medical): Physical Activity: ??? Days of Exercise per Week: ??? Minutes of Exercise per Session: Stress: ??? Feeling of Stress : Social Connections: ??? Frequency of Communication with Friends and Family: ??? Frequency of Social Gatherings with Friends and Family: ??? Attends Hinduism Services: ??? Active Member of Clubs or Organizations: ??? Attends Club or Organization Meetings: ??? Marital Status: Intimate Partner Violence: ??? Fear of Current or Ex-Partner: ??? Emotionally Abused: ??? Physically Abused: ??? Sexually Abused: Medications reviewed. Review of Systems Pertinent items are noted in HPI Constitutional: Negative for fevers, chills. Ears, nose, mouth, and throat: Negative Respiratory: Negative for shortness of breath, acute cough Skin: Positive for rash, itching Neurological: Negative Objective: BP 118/70 (BP SITE: RIGHT ARM, BP POSITION: SITTING, BP CUFF SIZE: 11) Pulse 81 Temp 98.2 ??F (36.8??C) (Oral) Resp 16 Ht 1.651 m (5' 5 ) Wt 67.1 kg (148 lb) SpO2 98% BMI 24.63 kg/m2 Skin: Physical Exam Skin: Exam General appearance: alert, cooperative, no distress, oriented to person, place, and time, wellappearing Head: normocephalic, without trauma Neck: range of motion is intact Lungs: breath sounds normal and symmetric; no rales or wheezes Heart: regular rhythm, normal S1 and S2, without murmurs, gallops or rubs Skin: multiple pruritic erythematous papules and vesicles on her arms, legs, back and abdomen. Erythematous area behind right knee that is arranged in a linear fashion. No drainage, warmth or streaking present. Non tender. Neurologic: mental status normal; alert and oriented X 3 No results found for this or any previous visit (from the past 24 hour(s)). Assessment: Encounter Diagnoses Name Primary? Contact dermatitis due to plants, except food, unspecified contact dermatitis type Yes Plan: Contact Dermatitis -Please take all medications as prescribed. -Avoid the irritant/plant that started this rash, you will continue to have a reaction as long as you are exposed to it. -Avoid scratching, picking at rash to help reduce infection and further itching. -Staying cool can help decrease the stinging and itching at rash site(s) (Take lukewarm shower, NOThot) -You may [id number] anti-itch products as needed for comfort (calamine, benadryl cream) -If prescribed an oral steroid, please take as directed and with food. Oral steroids in your case outweigh the possible side effects of them (e.g. Hunger, stomach upset, trouble sleeping, avascular necrosis) Orders Placed This Encounter ??? predniSONE (DELTASONE) 20 MG tablet Sig: Take 3 tabs on days 1-5, then 2 tabs on days 6-10, then 1 tab on days 11-15 Dispense: 30 tablet Refill: 0 ??? triamcinolone acetonide (KENALOG) 0.1 % ointment Sig: Apply to affected area 2 times daily Dispense: 80 g Refill: 0 Continue to follow up with No primary care provider on file. as directed. After Visit Summary reviewed with patient. The patient indicates understanding of these issues and agrees with the plan. Patient discharged to Home .Philly Hyde APRN-BAL 12/04/2020 11:33 AM documented in this encounter Plan of Treatment Not on file documented as of this encounter Visit Diagnoses Diagnosis Contact dermatitis due to plants, except food, unspecified contact dermatitis type- Primary documented in this encounter
--- OUTSIDE RECORDS SUMMARY | 2024-06-12 17:15 | XMS_ITS | Patient Health Summary ---
Author Organization [facility] Address [address] [place] [address] Care Team Providers Care Concrete Products Dispatcher Name Role Phone Adriana Posey MD Primary Care Provider [phone] [facility],non-owned Affiliates and Associated Physician Practices is amultiple site organization consisting of ambulatory clinics and hospital sitesin [place], [place], [place] and [place]. This disclosure is being madepursuant to the Care Everywhere program and may not contain all information available regarding this patient. Last updated 18.[facility] Allergies * Augmentin(Rash) -Medium Criticality Medications * Be aware that medications may not be up to date on this document. Alwaysverify current medications with the patient. * Norgestimate-Eth Estradiol (SPRINTEC 28 PO) * predniSONE (DELTASONE) 20 MG tablet(Started 12/04/2020) Take 3 tabs on days 1-5, then 2 tabs on days 6-10, then 1 tab on days 11-15 * triamcinolone acetonide (KENALOG) 0.1 % ointment(Started 12/04/2020) Apply to affected area 2 times daily Social History Tobacco Use Types Packs/Day Years [...] Mass Index 24.63 12/04/2020 11:08 AM CDT Procedures * CULTURE URINE(Performed 08/03/2020) Performed for Acute cystitis with hematuria * URINALYSIS AUTO - POINT OF CARE (AMB) STL(Performed 08/03/2020) Performed for Acute cystitis with hematuria Results * CULTURE URINE (08/03/2020 2:47 PM SHOP COORDINATOR) Pathologist [facility] Urine Culture Routine Final report [facility] ACCOUNT BILL Result 1 [facility] ACCOUNT BILL Comment: Mixed urogenital rosales 10,000-25,000 colony forming units per mL Urine URINE SPECIMEN OBTAINED BY CLEAN CATCH PROCEDURE / Unknown 08/03/2020 2:47 PM SHOP COORDINATOR 08/03/2020 Narrative Resulting Agency Comment Lab Testing performed at: [facility] [address] ??[facility] [phone] Anabel Sierra RESTAURANT HOST-CODER OPERATOR LAB - MICROBIOL OGY ORDERABLES [facility] ACCOUNT BILL [address] [place] [address] * URINALYSIS AUTO - POINT OF CARE (AMB) STL (08/03/2020 2:41 PM SHOP COORDINATOR) Clarity UA POCT cloudy [facility] [...] UA +++ Negative [facility] Specific [place] UA POCT 1.020 1.002 - 1.030 [facility] Ketone UA 160 Negative [facility] Bilirubin UA POCT neg Negative [facility] Glucose UA neg Negative [facility] Expiration Date 07/28/2020 [facility] Lot # [id number] [facility] QC Verified Yes Yes [facility] Urine URINE / Unknown 08/03/2020 2 :41 PM SHOP COORDINATOR Anabel Sierra RESTAURANT HOST-CODER OPERATOR LAB - POINT OF CARE ORDERABLES [facility] [address] [phone] Care Teams Concrete Products Dispatcher Relationship Specialty Start Date End Date Adriana Posey MD [address] [place] [address] [place] [id number] PCP - General 08/05/22
== END 2024-06-07 07:20 | disposition home or self-care (01) ==
LOC: ANHLAB 07:22
PROVIDERS: PCP Family Medicine; Visit Provider Obstetrics & Gynecology Gynecology
DX: Z34.93 Encounter for supervision of normal pregnancy, unspecified, third trimester (principal)
CPT/HCPCS: 36415; 82306; 82607; 82947; 85014; 85018; 85461; 86592; 86703; 86850; 86900; 86901; 90384; 96372; G0432; J2790

== ENCOUNTER 2024-07-07 14:23 | Outpatient (CLI) | payer OTHER, SELFPAY ==
--- NOTE | ~2024-07-07 | US_ITS ---
EXAMINATION: US OB follow up DATE: 07/07/2024 15:26 INDICATION: COVID during third trimester TECHNIQUE: Real-time ultrasound of the pelvis was performed. The interpreting radiologist was not pre sent for the study. COMPARISON: None. FINDINGS: There is a single living fetus in vertex presentation. The placenta is anterior and not low-lying. N ormal cervical length of 4.1 cm. heart rate is 155 beats per minute (bpm). The amniotic fluid i ndex is 10.3 cm, which is normal (5th%-95%: 7.9-24.9 cm at 35 weeks estimated gestational age). The following biometric data were obtained: BPD: 8.3 cm -> 33 weeks 3 days Head circumference: 32.0 cm -> 36 weeks 0 days Abdominal circumference: 31.1 cm -> 35 weeks 0 days Femur length: 6.6 cm -> 34 weeks 1 days These measurements are concordant. Head circumference to abdominal circumference ratio: 1.03 (normal range 0.93-1.11). Estimated weight: 2498 g (+/-) 375 g or 5 lbs. 8 oz. (+/-) 13 oz. IMPRESSION: 1. Single living fetus in vertex presentation with heart rate of 155 bpm. 2. Normal amniotic fluid index of 10.3 cm. 3. Estimated weight is 38th percentile by Hadlock criteria when 08/11/2024 is used as the estima pan date of delivery (RODO). Please correlate with clinical information or earlier ultrasounds for mos t accurate RODO. Reviewed, dictated and finalized at location B. NESS PROCESS CONSULTANT IMPRESSION: 1. Single living fetus in vertex presentation with heart rate of 155 bpm. 2. Normal amniotic fluid index of 10.3 cm. 3. Estimated weight is 38th percentile by Hadlock criteria when 08/11/2024 is used as the estimated date of delivery (RODO). Please correlate with clinica l information or earlier ultrasounds for most accurate RODO.
== END 2024-07-07 14:24 | disposition home or self-care (01) ==
PROVIDERS: PCP Family Medicine; Visit Provider Obstetrics & Gynecology Gynecology
DX: Z34.90 Encounter for supervision of normal pregnancy, unspecified, unspecified trimester (principal); Z3A.00 Weeks of gestation of pregnancy not specified; Z86.16 Personal history of COVID-19
CPT/HCPCS: 76816

== ENCOUNTER 2024-07-31 19:05 | Observation (INO) | payer OTHER, SELFPAY ==
[2024-07-31 19:18] VITALS: TEMP 36.6
--- OUTSIDE RECORDS SUMMARY | 2024-07-31 22:46 | XMS_ITS | Patient Health Summary ---
Author Organization [facility] [employer] Address [address] [facility] [place] [address] Care Team Providers Care Gear Straightener Name Role Phone Adriana Posey MD Primary Care Provider [phone] Note from [facility],non-owned Affiliates and Associated Physician Practices is amultiple site organization consisting of ambulatory clinics and hospital sitesin [place], [place], [place] and [place]. This disclosure is being madepursuant to the Care Everywhere program and may not contain all information available regarding this patient. Last updated 18.[facility] Allergies * Augmentin(Rash) -Medium Criticality Medications * Be aware that medications may not be up to date on this document. Alwaysverify current medications with the patient. * Vit-Fe Fumarate-FA ( vitamin) 28-0.8 MG tablet Take 1 (one) tablet by mouth once daily * benzonatate (Tessalon) 100 MG capsule(Started 07/10/2024) Take 1 (one) capsule by mouth 3 times daily as needed for Cough * guaiFENesin ER 12hr (Mucinex) 600 MG tablet(Started 07/10/2024) Take 1 (one) tablet by mouth every 12 hours Ended Medications* Norgestimate-Eth Estradiol (SPRINTEC 28 PO)(Discontinued) * predniSONE (DELTASONE) 20 MG tablet(Started 12/04/2020)(Discontinued) Take 3 tabs on days 1-5, then 2 tabs on days 6-10, then 1 tab on days 11-15 * triamcinolone acetonide (KENALOG) 0.1 % ointment(Started 12/04/2020) (Discontinued) Apply to affected area 2 times daily Active Problems Problem Noted Date Diagnosed Date Encounter for supervision of normal , antepartum, unspecified 07/10/2024 Social History Tobacco Use Types Packs/Day Years Used Date Smoking Tobacco: Never Passive Smoke Exposure: Never Smokeless Tobacco: Never Tobacco Cessation:Counseling Given: Yes Alcohol Use Standard Drinks/Week Comments Never 0 (1 standard drink = 0.6 oz pur e alcohol) Overall Financial Resource Strain (CARDIA) Answe r Date Recorded How hard is it for you to pa y for the very basics like food, housing, medical care, and heating? Not hard at all 07/10/2024 PHQ-2 Answer Date Recorded PHQ2 TOTAL SCORE 0 12/04/2020 [facility] Occupat ional Health - Occupational Stress Questionnaire Answer Date Recorded Do you feel stress - tense, restless, nervous, or anxious, or unable to sleep at night because your mind is troubled all the time - these days? Not at all 07/10/2024 Hunger Vital Sign Answer Date Recorded Within the past 12 months, y ou worried that your food would run out before you got the money to buy more. Never true 07/10/19 25 Within the past 12 months, t he food you bought just didn't last and you didn't have money to get more. Never true 07/10/2024 PRAPARE - Transportation Answer Date Re corded In the past 12 months, has l ack of transportation kept you from medical appointments or from getting medications? No 06/23 In the past 12 months, has l ack of transportation kept you from meetings, work, or from getting things needed for daily living? No 07/10/2024 Housing Stability Vital Sign Answer Dov e Recorded In the last 12 months, was t here a time when you were not able to pay the mortgage or rent on time? No 07/10/2024 In the past 12 months, how m any times have you moved where you were living? 0 07/10/2024 At any time in the past 12 m [facility], were you homeless or living in a assisted (including now)? No 07/10/2024 Estimated Date of Delivery Comme nts Yes 08/12/2024 Based on Patient Reported Sex and Gender Information Value Date Recorded Sex Assigned at Not on file Gender Identity Not on file Sexual Orientation Not on file Last Filed Vital Signs Vital Sign Reading Time Taken Comments Blood Pressure 113/53 07/10/2024 4:15 AM EVALUATION ENGINEER Pulse 81 12/04/2020 11:08 AM CDT Temperature 37.8 C (100 F) 07/10/2024 4:15 AM EVALUATION ENGINEER Respiratory Rate 18 07/10/2024 4:15 AM EVALUATION ENGINEER Oxygen Saturation 100% 07/10/2024 3:16 AM EVALUATION ENGINEER Inhaled Oxygen Concentration - - Weight 97.5 kg (215 lb) 07/10/2024 12:15 AM EVALUATION ENGINEER Height 165.1 cm (5' 5 ) 07/10/2024 12:15 AM EVALUATION ENGINEER Body Mass Index 35.78 07/10/2024 12:15 AM EVALUATION ENGINEER Procedures * NONSTRESS TEST(Performed 07/10/2024) * RESPIRATORY PANEL WITH SARS-COV-2 BY PCR (STL)(Performed 07/10/2024) Performed for Encounter for supervision of normal , antepartum, unspecified (HCC) * CULTURE URINE(Performed 08/03/2020) Performed for Acute cystitis with hematuria * URINALYSIS AUTO - POINT OF CARE (AMB) STL(Performed 08/03/2020) Performed for Acute cystitis with hematuria Results * NONSTRESS TEST (07/10/2024 4:26 AM EVALUATION ENGINEER) Narrative Manuel Vick MD - 07/10/2024 4:26 AM EVALUATION ENGINEER Dawna Crooks DO 07/10/2024 10:03 AM Name: Cierra Beach Date of : 2000 Today's Date: 07/10/2024 35w2d NST RESULTS (GONZALEZ) OBJECTIVE FINDINGS Temp: 100 F (37.8 C), , Resp: 18, BP: 113/53 NST Indication(s): (chest pain, sob) Uterine Irritability: Yes Contractions: Not present OBJECTIVE FINDINGS Movement: Present Monitoring Mode: External Baseline: 150 BPM Variability: Moderate Decelerations: None Accelerations: Yes OTHER INFORMATION Maegan Shen, REJI Non-Stress Test [facility] Patient Name: Cierra Beach LMP: Patient's last menstrual period was 11/16/2020. Gestational Age: 35w2d as of 07/10/2024 Estimated Date of Delivery: 08/12/24 Indications: other chest pain NST date: 07/10/2024 NST duration: >20 mins Interpretation: NST: baseline 140 bpm, moderate variability, reactive, no decelerations Hood: no contractions Impression and Plan: FWB reassuring, continue monitoring as scheduled. Dawna Crooks, 07/10/2024 10:03 AM Manuel Vick MD OB GYNE ORDERABLES * (ABNORMAL) RESPIRATORY PANEL WITH SARS-COV-2 BY PCR (STL) (07/10/2024 4:18 AM EVALUATION ENGINEER) Adenovirus PCR Not detected Not detected 07/10/2024 11:11 AM EVALUATION ENGINEER [facility] Coronavirus 229E PCR Not detected Not detected 07/10/2024 11:11 AM EVALUATION ENGINEER [facility] Coronavirus HKU1 PCR Not detected Not detected 07/10/2024 11:11 AM EVALUATION ENGINEER [facility] Coronavirus NL63 PCR Not detected Not detected 07/10/2024 11:11 AM EVALUATION ENGINEER [facility] Coronavirus OC43 PCR Not detected Not detected 07/10/2024 11:11 AM EVALUATION ENGINEER [facility] COVID-19 PCR Not detected Not detected 07/10/2024 11:11 AM EVALUATION ENGINEER [facility] Human Metapneumovirus PCR Not detected Not detected 07/10/2024 11:11 AM EVALUATION ENGINEER [facility] Human Rhinovirus/Enterov irus PCR Not detected Not detected 07/10/2024 11:11 AM EVALUATION ENGINEER [facility] Influenza A H1 2009 PCR Detected(A) Not detected 07/10/2024 11:11 AM EVALUATION ENGINEER [facility] Influenza B PCR Not detected Not detected 07/10/2024 11:11 AM EVALUATION ENGINEER [facility] Parainfluenza Virus 1 PCR Not detected Not detected 07/10/2024 11:11 AM EVALUATION ENGINEER [facility] Parainfluenza Virus 2 PCR Not detected Not detected 07/10/2024 11:11 AM EVALUATION ENGINEER [facility] Parainfluenza Virus 3 PCR Not detected Not detected 07/10/2024 11:11 AM EVALUATION ENGINEER [facility] Parainfluenza Virus 4 PCR Not detected Not detected 07/10/2024 11:11 AM EVALUATION ENGINEER [facility] Respiratory Syncytial Virus PCR Not detected Not detected 07/10/2024 11:11 AM EVALUATION ENGINEER [facility] Bordetella parapertussis PCR Not detected Not detected 07/10/2024 11:11 AM [facility] Bordetella pertussis PCR Not detected Not detected 07/10/2024 11:11 AM [facility] Chlamydia pneumoniae PCR Not detected Not detected 07/10/2024 11:11 AM EVALUATION ENGINEER [facility] Mycoplasma pneumoniae PCR Not detected Not detected 07/10/2024 11:11 AM [facility] Microbiology SPECIMEN FROM NASOPHARYNGEAL STRUCTURE / Unknown Collection / Unknown 07/10/2024 4:18 AM EVALUATION ENGINEER 07/10/2024 4:28 AM EVALUATION ENGINEER Narrative [facility] - 07/10/2024 11:11 AM EVALUATION ENGINEER Droplet Precautions Required. This nucleic amplification assay has received FDA authorization via the [employer]. Manuel Vick MD LAB - MICROBIOLOGY O RDERABLES [facility] [address] [place], [address] [phone] * CULTURE URINE (08/03/2020 2:47 PM EVALUATION ENGINEER) [facility] Urine Culture Routine Final report [facility] ACCOUNT BILL Result 1 [facility] ACCOUNT BILL Comment: Mixed urogenital rosales 10,000-25,000 colony forming units per mL Urine URINE SPECIMEN OBTAINED BY CLEAN CATCH PROCEDURE / Unknown 08/03/2020 2:47 PM EVALUATION ENGINEER 08/03/2020 Narrative Resulting Agency Comment Lab Testing performed at: [facility] [address] [facility] [facility] [id number] Anabel Sierra APRN-BAL LAB - MICROBIOL OGY ORDERABLES [facility] ACCOUNT BILL [address] [place] [address] * URINALYSIS AUTO - POINT OF CARE (AMB) STL (08/03/2020 2:41 PM EVALUATION ENGINEER) Pathologist [facility] Clarity UA POCT cloudy [facility] [...] UA +++ Negative [facility] Specific [place] UA POCT 1.020 1.002 - 1.030 [facility] Ketone UA 160 Negative [facility] Bilirubin UA POCT neg Negative [facility] Glucose UA neg Negative [facility] Expiration Date 07/28/2020 [facility] Lot # [id number] [facility] QC Verified Yes Yes [facility] Urine URINE / Unknown 08/03/2020 2 :41 PM EVALUATION ENGINEER Anabel Sierra TALENT SOURCING SPECIALIST-BENDING FRAME OPERATOR LAB - POINT OF CARE ORDERABLES [facility] [address] [phone] Care Teams Gear Straightener Relationship Specialty Start Date End Date Adriana Posey MD [address] [place] [id number] PCP - General 08/05/22
--- OUTSIDE RECORDS SUMMARY | 2024-07-31 22:46 | XMS_ITS | Referral Summary ---
Author Organization [facility] Address [address] [place] [address] Care Team Providers Care Pathologist Assistant Name Role Phone Adriana Posey MD Primary Care Provider [phone] Source Comments [facility],non-owned Affiliates and Associated Physician Practices is amultiple site organization consisting of ambulatory clinics and hospital sitesin [place], [place], [place] and [place]. This disclosure is being madepursuant to the Care Everywhere program and may not contain all information available regarding this patient. Last updated 18.[facility] Encounters Date Type Department Care Team Description 07/14/2024 Telephone [facility] PHYS OB [address] [place], [place] [id number] Selena Reese MD Results 07/10/2024 12:14 AM MOBILE PAINT SPECIALIST - 07/10/2024 4:26 AM [facility] Hospital Encounter [facility] [address] [place], [place] [id number] Manuel Vick MD Maternal Medicine Discharge Disposition: Home or Self Care from Last 3 Months Allergies Active Allergy Reactions Criticality Noted Date Comments Augmentin Rash Medium 08/03/2020 Medications * Be aware that medications may not be up to date on this document. Alwaysverify current medications with the patient. Medication Sig Dispensed Refills Start Date End Date Status Vit-Fe Fumarate-FA ( vitamin) 28-0.8 MG tablet Take 1 (one) tablet by mouth once daily Active benzonatate (Tessalon) 100 MG capsule Take 1 (one) capsule by mouth 3 times daily as needed for Cough 30 capsule 07/10/2024 Active guaiFENesin ER 12hr (Mucinex) 600 MG tablet Take 1 (one) tablet by mouth every 12 hours 30 tablet 07/10/2024 Active Norgestimate-Eth Estradiol (SPRINTEC 28 PO) 07/10/2024 Disconti nued (Tx Complete) predniSONE (DELTASONE) 20 MG tablet Take 3 tabs on days 1-5, then 2 tabs on days 6-10, then 1 tab on days 11-15 30 tablet 12/04/2020 07/10/2024 Discontinued (Tx Complete) triamcinolone acetonide (KENALOG) 0.1 % ointment Apply to affected area 2 times daily 80 g 12/04/2020 07/10/2024 Discontinued (Tx Complete) Active Problems Problem Noted Date Diagnosed Date Encounter for supervision of normal , antepartum, unspecified 07/10/2024 Estimated Date of Delivery Comme nts Yes 08/12/2024 Based on Patient Reported Social History Tobacco Use Types Packs/Day Years [...] Date Recorded PHQ2 TOTAL SCORE 0 12/04/2020 [facility] Occupat ional Health - Occupational Stress [...] any time in the past 12 m [facility], were you homeless or living in a long term (including now)? No 07/10/2024 Estimated Date of Delivery Comme nts Yes 08/12/2024 Based on Patient Reported Sex and Gender Information Value Date Recorded Sex Assigned at Not on file Gender Identity Not on file Sexual Orientation Not on file Last Filed Vital Signs Vital Sign Reading Time Taken Comments Blood Pressure 113/53 07/10/2024 4:15 AM MOBILE PAINT SPECIALIST Pulse 81 12/04/2020 11:08 AM CDT Temperature 37.8 C (100 F) 07/10/2024 4:15 AM MOBILE PAINT SPECIALIST Respiratory Rate 18 07/10/2024 4:15 AM MOBILE PAINT SPECIALIST Oxygen Saturation 100% 07/10/2024 3:16 AM MOBILE PAINT SPECIALIST Inhaled Oxygen Concentration - - Weight 97.5 kg (215 lb) 07/10/2024 12:15 AM MOBILE PAINT SPECIALIST Height 165.1 cm (5' 5 ) 07/10/2024 12:15 AM MOBILE PAINT SPECIALIST Body Mass Index 35.78 07/10/2024 12:15 AM MOBILE PAINT SPECIALIST Functional Status Functional Status Response Date of Assess ment Is person deaf or have serious hearing difficult y? No 07/10/2024 Is person blind or have serious difficulty seein g? No 07/10/2024 Does person have serious dif ficulty walking/climbing stairs? No 07/10/2024 Does person have difficulty dressing/bathing? No 07/10/2024 Does person have difficulty doing errands alone? No 07/10/2024 Cognitive Status Response Date of Assessm ent Does person have difficulty concentrating/remembering/making decisions? No 07/10/2024 Plan of Treatment Upcoming Encounters Date Type Department Care Team (Latest Contact Info) Description 09/09/2024 10:52 PM CDT Hospital Encounter [facility] [address] [place] [address] Maternal Medicine Procedures Procedure Name Priority Date/Time Associated Diagnosis Comments NONSTRESS TEST Routine 07/10/2024 4:26 AM MOBILE PAINT SPECIALIST RESPIRATORY PANEL WITH SARS-COV-2 BY PCR (STL) Routine 07/10/2024 4:18 AM MOBILE PAINT SPECIALIST Encounter for supervision of normal , antepartum, unspecified (HCC) from Last 3 Months Results * NONSTRESS TEST (07/10/2024 4:26 AM MOBILE PAINT SPECIALIST) Manuel Patel MD - 07/10/2024 4:26 AM MOBILE PAINT SPECIALIST Dawna Crooks DO 07/10/2024 10:03 AM Name: Shimon Gaytan Date of : 2000 Today's Date: 07/10/2024 35w2d NST RESULTS (GONZALEZ) OBJECTIVE FINDINGS Temp: 100 F (37.8 C), , Resp: 18, BP: 113/53 NST Indication(s): (chest pain, sob) Uterine Irritability: Yes Contractions: Not present OBJECTIVE FINDINGS Movement: Present Monitoring Mode: External Baseline: 150 BPM Variability: Moderate Decelerations: None Accelerations: Yes OTHER INFORMATION Maegan Shen RN Non-Stress Test [facility] Patient Name: Shimon Gaytan LMP: Patient's last menstrual period was 11/16/2020. Gestational Age: 35w2d as of 07/10/2024 Estimated Date of Delivery: 08/12/24 Indications: other chest pain NST date: 07/10/2024 NST duration: >20 mins Interpretation: NST: baseline 140 bpm, moderate variability, reactive, no decelerations Alanson: no contractions Impression and Plan: FWB reassuring, continue monitoring as scheduled. Dawna Crooks DO 07/10/2024 10:03 AM Manuel Vick MD OB GYNE ORDERABLES * (ABNORMAL) RESPIRATORY PANEL WITH SARS-COV-2 BY PCR (STL) (07/10/2024 4:18 AM MOBILE PAINT SPECIALIST) Adenovirus PCR Not detected Not detected 07/10/2024 11:11 AM MOBILE PAINT SPECIALIST [facility] Coronavirus 229E PCR Not detected Not detected 07/10/2024 11:11 AM MOBILE PAINT SPECIALIST [facility] Coronavirus HKU1 PCR Not detected Not detected 07/10/2024 11:11 AM MOBILE PAINT SPECIALIST [facility] Coronavirus NL63 PCR Not detected Not detected 07/10/2024 11:11 AM MOBILE PAINT SPECIALIST [facility] Coronavirus OC43 PCR Not detected Not detected 07/10/2024 11:11 AM MOBILE PAINT SPECIALIST [facility] COVID-19 PCR Not detected Not detected 07/10/2024 11:11 AM MOBILE PAINT SPECIALIST [facility] Human Metapneumovirus PCR Not detected Not detected 07/10/2024 11:11 AM MOBILE PAINT SPECIALIST [facility] Human Rhinovirus/Enterov irus PCR Not detected Not detected 07/10/2024 11:11 AM MOBILE PAINT SPECIALIST [facility] Influenza A H1 2009 PCR Detected(A) Not detected 07/10/2024 11:11 AM MOBILE PAINT SPECIALIST [facility] Influenza B PCR Not detected Not detected 07/10/2024 11:11 AM MOBILE PAINT SPECIALIST [facility] Parainfluenza Virus 1 PCR Not detected Not detected 07/10/2024 11:11 AM MOBILE PAINT SPECIALIST [facility] Parainfluenza Virus 2 PCR Not detected Not detected 07/10/2024 11:11 AM MOBILE PAINT SPECIALIST [facility] Parainfluenza Virus 3 PCR Not detected Not detected 07/10/2024 11:11 AM MOBILE PAINT SPECIALIST [facility] Parainfluenza Virus 4 PCR Not detected Not detected 07/10/2024 11:11 AM MOBILE PAINT SPECIALIST [facility] Respiratory Syncytial Virus PCR Not detected Not detected 07/10/2024 11:11 AM MOBILE PAINT SPECIALIST [facility] Bordetella parapertussis PCR Not detected Not detected 07/10/2024 11:11 AM MOBILE PAINT SPECIALIST [facility] Bordetella pertussis PCR Not detected Not detected 07/10/2024 11:11 AM MOBILE PAINT SPECIALIST [facility] Chlamydia pneumoniae PCR Not detected Not detected 07/10/2024 11:11 AM MOBILE PAINT SPECIALIST [facility] Mycoplasma pneumoniae PCR Not detected Not detected 07/10/2024 11:11 AM MOBILE PAINT SPECIALIST [facility] Microbiology SPECIMEN FROM NASOPHARYNGEAL STRUCTURE / Unknown Collection / Unknown 07/10/2024 4:18 AM MOBILE PAINT SPECIALIST 07/10/2024 4:28 AM MOBILE PAINT SPECIALIST Narrative [facility] - 07/10/2024 11:11 AM MOBILE PAINT SPECIALIST Droplet Precautions Required. This nucleic amplification assay has received FDA authorization via the [employer]. Manuel Vick MD LAB - MICROBIOLOGY O RDERABLES [facility] [address] [place] [address], [facility] [phone] from Last 3 Months Care Teams Pathologist Assistant Relationship Specialty Start Date End Date Adriana Posey MD [address] [place] [address] [place] [id number] PCP - General 08/05/22
--- OUTSIDE RECORDS SUMMARY | 2024-07-31 22:46 | XMS_ITS | Clinical Summary ---
Author Organization [facility] Address [address] [place] [address] Care Team Providers Care Slubber Operator Name Role Phone Adriana Posey MD Primary Care Provider [phone] [facility],non-owned Affiliates and Associated Physician Practices is amultiple site organization consisting of ambulatory clinics and hospital sitesin [place], [place], [place] and [place]. This disclosure is being madepursuant to the Care Everywhere program and may not contain all information available regarding this patient. Last updated 18.[facility] Allergies Active Allergy Reactions Criticality Noted Date [...] nts Yes 08/12/2024 Based on Patient Reported Encounters Date Type Department Care Team Description 07/14/2024 Telephone [facility] PHYS OB [address] [place] [address] Selena Reese MD Results 07/10/2024 12:14 AM TELEVISION REPORTER - 07/10/2024 4:26 AM [facility] Hospital Encounter [facility] [address] [place] [address] Manuel Vick MD Maternal Medicine Discharge Disposition: Home or Self Care from Last 3 Months Social History Tobacco Use Types Packs/Day Years [...] Date Recorded PHQ2 TOTAL SCORE 0 12/04/2020 [facility] [place] [facility] Occupat ional Health - Occupational Stress [...] any time in the past 12 m ont, were you homeless or living in a [...] Comments Blood Pressure 113/53 07/10/2024 4:15 AM TELEVISION REPORTER Pulse 81 12/04/2020 11:08 AM CDT Temperature 37.8 C (100 F) 07/10/2024 4:15 AM TELEVISION REPORTER Respiratory Rate 18 07/10/2024 4:15 AM TELEVISION REPORTER Oxygen Saturation 100% 07/10/2024 3:16 AM TELEVISION REPORTER Inhaled Oxygen Concentration - - Weight 97.5 kg (215 lb) 07/10/2024 12:15 AM TELEVISION REPORTER Height 165.1 cm (5' 5 ) 07/10/2024 12:15 AM TELEVISION REPORTER Body Mass Index 35.78 07/10/2024 12:15 AM TELEVISION REPORTER Plan of Treatment Upcoming Encounters Date Type Department Care Team (Latest Contact Info) Description 09/09/2024 10:52 PM CDT Hospital Encounter [facility] [address] [place] [address] Maternal Medicine Health Maintenance Due Date Last Done Comments PAP SMEAR 1998 HIV SCREENING 2013 HPV VACCINE (1 - 3-dose series) 2013 CHLAMYDIA/GONORRHEA SCREENING 2014 HEPATITIS C SCREENING 06/25/2016 DTAP/TDAP/TD VACCINES (1 - Tdap) 2017 HEPATITIS B VACCINE (1 of 3 - 19+ 3-dose series) 2017 COVID-19 VACCINE (2023-2 5 season) 2024 INFLUENZA VACCINE (#1) 2024 03/17/2013 OB-ONE HOUR GLUCOSE 05/06/2024 OB-TDAP CURRENT 05/13/2024 OB-RHOGAM INJECTION 05/20/2024 DEPRESSION SCREENING 06/23/2024 OB-GROUP B STREP SCREEN 07/08/2024 ZOSTER VACCINE (1 of 2) 2048 HIB VACCINE Aged Out No longer eligi ble based on patient's age to complete this topic MENINGOCOCCAL (Group B) VACCINE Aged Out No longer eligible based on patient's age to complete this topic MENINGOCOCCAL VACCINE Aged Out No rupali luis miguel eligible based on patient's age to complete this topic PNEUMOCOCCAL VACCINE Aged Out No long er eligible based on patient's age to complete this topic Respiratory Syncytial Virus (RSV) Vaccine Pt: or over 60 yrs (No Doses Required) Completed Procedures Procedure Name Priority Date/Time Associated Diagnosis Comments NONSTRESS TEST Routine 07/10/2024 4:26 AM TELEVISION REPORTER RESPIRATORY PANEL WITH SARS-COV-2 BY PCR (STL) Routine 07/10/2024 4:18 AM TELEVISION REPORTER Encounter for supervision of normal , antepartum, unspecified (HCC) from Last 3 Months Results * NONSTRESS TEST (07/10/2024 4:26 AM TELEVISION REPORTER) Narrative Manuel Vick MD - 07/10/2024 4:26 AM TELEVISION REPORTER Dawna Crooks DO 07/10/2024 10:03 AM Name: [...] OTHER INFORMATION Maegan Shen RN Non-Stress Test [facility] Patient Name: Shimon Gaytan LMP: Patient's last menstrual period was 11/16/2020. Gestational Age: 35w2d as of 07/10/2024 Estimated Date of Delivery: 08/12/24 Indications: other chest pain NST date: 07/10/2024 NST duration: >20 mins Interpretation: NST: baseline 140 bpm, moderate variability, reactive, no decelerations [place]: no contractions Impression and Plan: FWB reassuring, continue monitoring as scheduled. Dawna Crooks DO 07/10/2024 10:03 AM Manuel Vick MD OB GYNE ORDERABLES * (ABNORMAL) RESPIRATORY PANEL WITH SARS-COV-2 BY PCR (STL) (07/10/2024 4:18 AM TELEVISION REPORTER) Adenovirus PCR Not detected Not detected 07/10/2024 11:11 AM TELEVISION REPORTER [facility] Coronavirus 229E PCR Not detected Not detected 07/10/2024 11:11 AM TELEVISION REPORTER [facility] Coronavirus HKU1 PCR Not detected Not detected 07/10/2024 11:11 AM TELEVISION REPORTER [facility] Coronavirus NL63 PCR Not detected Not detected 07/10/2024 11:11 AM TELEVISION REPORTER [facility] Coronavirus OC43 PCR Not detected Not detected 07/10/2024 11:11 AM TELEVISION REPORTER [facility] COVID-19 PCR Not detected Not detected 07/10/2024 11:11 AM TELEVISION REPORTER [facility] Human Metapneumovirus PCR Not detected Not detected 07/10/2024 11:11 AM TELEVISION REPORTER [facility] Human Rhinovirus/Enterov irus PCR Not detected Not detected 07/10/2024 11:11 AM TELEVISION REPORTER [facility] Influenza A H1 2009 PCR Detected(A) Not detected 07/10/2024 11:11 AM TELEVISION REPORTER [facility] Influenza B PCR Not detected Not detected 07/10/2024 11:11 AM TELEVISION REPORTER [facility] Parainfluenza Virus 1 PCR Not detected Not detected 07/10/2024 11:11 AM TELEVISION REPORTER [facility] Parainfluenza Virus 2 PCR Not detected Not detected 07/10/2024 11:11 AM TELEVISION REPORTER [facility] Parainfluenza Virus 3 PCR Not detected Not detected 07/10/2024 11:11 AM TELEVISION REPORTER [facility] Parainfluenza Virus 4 PCR Not detected Not detected 07/10/2024 11:[address] [facility] Respiratory Syncytial Virus PCR Not detected Not detected 07/10/2024 11:[address] [facility] Bordetella parapertussis PCR Not detected Not detected 07/10/2024 11:[address] [facility] Bordetella pertussis PCR Not detected Not detected 07/10/2024 11:[address] [facility] Chlamydia pneumoniae PCR Not detected Not detected 07/10/2024 11:[address] [facility] Mycoplasma pneumoniae PCR Not detected Not detected 07/10/2024 11:[address] [facility] Microbiology SPECIMEN FROM NASOPHARYNGEAL STRUCTURE / Unknown Collection / Unknown 07/10/2024 4:18 AM TELEVISION REPORTER 07/10/2024 4:28 AM TELEVISION REPORTER Narrative [facility] - 07/10/2024 11:11 AM TELEVISION REPORTER Droplet Precautions Required. This nucleic amplification assay has received FDA authorization via the [employer]. Manuel Vick MD LAB - MICROBIOLOGY O RDERABLES [facility] [address] [place], [place] [address], [facility] [phone] from Last 3 Months Care Teams Slubber Operator Relationship Specialty Start Date End Date Adriana Posey MD [address] [place] [address] PCP - General 08/05/22
[2024-07-31 22:56] VITALS: BMI 36.6
--- NOTE | 2024-07-31 22:56 | OBADM ---
This patient, Cierra Beach, admitted to the OB room Labor/Delivery/Recovery 106 for observation. Patient/family oriented to hospital policies and general routines including ID bracelet, bed and alarms, visiting hours, pain management, procedures, bathroom and other care routines, personal items, smoking policy, room service/diet, and visiting hours. Patient/Family are encouraged to report perceived risks to care and to ask questions if they do not understand what they are told or what they should do.
--- NOTE | 2024-08-05 07:53 | PM.OBTRLD ---
OB - Triage/Final Diagnosis Visit Information Reason for evaluation: threatened labor Comments/Additional reasons for admission: I have assessed the risk for this patient, Cierra Beach, and determined that she would benefit from observation care.
== END 2024-07-31 23:15 | disposition home or self-care (01) ==
PROVIDERS: Admitting Provider Obstetrics & Gynecology Gynecology; PCP Family Medicine; Visit Provider Obstetrics & Gynecology Gynecology
DX: O47.1 False labor at or after 37 completed weeks of gestation (principal); Z3A.37 37 weeks gestation of pregnancy
CPT/HCPCS: G0378; G0379

== ENCOUNTER 2024-08-10 08:16 | Inpatient (IN) | payer OTHER, SELFPAY ==
[2024-08-10] VITALS (9 sets, daily range): BP systolic 101–137; BP diastolic 58–92; PULSE 68–170; RESP 14–18; TEMP 36.3–36.9; O2SAT 98–100; BMI 36.6
--- OUTSIDE RECORDS SUMMARY | 2024-08-10 08:32 | XMS_ITS | Patient Health Summary ---
Author Organization [facility] Address [address] [place] [address] Care Team Providers Care Lumber Tallier Name Role Phone Adriana Posey MD Primary Care Provider [phone] Note from [facility],non-owned Affiliates and Associated Physician Practices is amultiple site organization consisting of ambulatory clinics and hospital sitesin [place], [place], [place] and [place]. This disclosure is being madepursuant to the Care Everywhere program and may not contain all information available regarding this patient. Last updated 18.[facility] Allergies * Augmentin(Rash) -Medium Criticality Medications * [...] (one) tablet by mouth every 12 hours Active Problems Problem Noted Date Diagnosed Date [...] Date Recorded PHQ2 TOTAL SCORE 0 12/04/2020 [facility] - Occupational Stress Questionnaire Answer Date Recorded [...] money to buy more. Never true 07/10/19 Within the past 12 months, t he [...] any time in the past 12 m [facility], were you homeless or living in a ch[facility] (including now)? No 07/10/2024 Estimated Date of Delivery Comme nts Yes 08/12/2024 Based on Patient Reported Sex and Gender Information Value Date Recorded Sex Assigned at Not on file Gender Identity Not on file Sexual Orientation Not on file Last Filed Vital Signs Vital Sign Reading Time Taken Comments Blood Pressure 113/53 07/10/2024 4:15 AM MAGNETOMETER OPERATOR Pulse 81 12/04/2020 11:08 AM CDT Temperature 37.8 C (100 F) 07/10/2024 4:15 AM MAGNETOMETER OPERATOR Respiratory Rate 18 07/10/2024 4:15 AM MAGNETOMETER OPERATOR Oxygen Saturation 100% 07/10/2024 3:16 AM MAGNETOMETER OPERATOR Inhaled Oxygen Concentration - - Weight 97.5 kg (215 lb) 07/10/2024 12:15 AM MAGNETOMETER OPERATOR Height 165.1 cm (5' 5 ) 07/10/2024 12:15 AM MAGNETOMETER OPERATOR Body Mass Index 35.78 07/10/2024 12:15 AM MAGNETOMETER OPERATOR Procedures * NONSTRESS TEST(Performed 07/10/2024) * RESPIRATORY PANEL WITH SARS-COV-2 BY PCR (STL)(Performed 07/10/2024) Performed for Encounter for supervision of normal , antepartum, unspecified (HCC) * CULTURE URINE(Performed 08/03/2020) Performed for Acute cystitis with hematuria * URINALYSIS AUTO - POINT OF CARE (AMB) STL(Performed 08/03/2020) Performed for Acute cystitis with hematuria Results * NONSTRESS TEST (07/10/2024 4:26 AM MAGNETOMETER OPERATOR) Manuel Patel MD - 07/10/2024 4:26 AM MAGNETOMETER OPERATOR Dawna Crooks DO 07/10/2024 10:03 AM Name: [...] OTHER INFORMATION Maegan Shen RN Non-Stress Test [facility] Patient Name: Cierra Beach LMP: Patient's last menstrual period was 11/16/2020. Gestational Age: 35w2d as of 07/10/2024 Estimated Date of Delivery: 08/12/24 Indications: other chest pain NST date: 07/10/2024 NST duration: >20 mins Interpretation: NST: baseline 140 bpm, moderate variability, reactive, no decelerations [place]: no contractions Impression and Plan: FWB reassuring, continue monitoring as scheduled. Dawna Crooks DO 07/10/2024 10:03 AM Manuel Vick MD OB GYNE ORDERABLES * (ABNORMAL) RESPIRATORY PANEL WITH SARS-COV-2 BY PCR (STL) (07/10/2024 4:18 AM MAGNETOMETER OPERATOR) Adenovirus PCR Not detected Not detected 07/10/2024 11:11 AM MAGNETOMETER OPERATOR [facility] Coronavirus 229E PCR Not detected Not detected 07/10/2024 11:11 AM MAGNETOMETER OPERATOR [facility] Coronavirus HKU1 PCR Not detected Not detected 07/10/2024 11:11 AM MAGNETOMETER OPERATOR [facility] Coronavirus NL63 PCR Not detected Not detected 07/10/2024 11:11 AM MAGNETOMETER OPERATOR [facility] Coronavirus OC43 PCR Not detected Not detected 07/10/2024 11:11 AM MAGNETOMETER OPERATOR [facility] COVID-19 PCR Not detected Not detected 07/10/2024 11:11 AM MAGNETOMETER OPERATOR [facility] Human Metapneumovirus PCR Not detected Not detected 07/10/2024 11:11 AM MAGNETOMETER OPERATOR [facility] Human Rhinovirus/Enterov irus PCR Not detected Not detected 07/10/2024 11:11 AM MAGNETOMETER OPERATOR [facility] Influenza A H1 2009 PCR Detected(A) Not detected 07/10/2024 11:11 AM MAGNETOMETER OPERATOR [facility] Influenza B PCR Not detected Not detected 07/10/2024 11:11 AM MAGNETOMETER OPERATOR [facility] Parainfluenza Virus 1 PCR Not detected Not detected 07/10/2024 11:11 AM MAGNETOMETER OPERATOR [facility] Parainfluenza Virus 2 PCR Not detected Not detected 07/10/2024 11:11 AM MAGNETOMETER OPERATOR [facility] Parainfluenza Virus 3 PCR Not detected Not detected 07/10/2024 11:11 AM MAGNETOMETER OPERATOR [facility] Parainfluenza Virus 4 PCR Not detected Not detected 07/10/2024 11:11 AM MAGNETOMETER OPERATOR [facility] Respiratory Syncytial Virus PCR Not detected Not detected 07/10/2024 11:11 AM MAGNETOMETER OPERATOR [facility] Bordetella parapertussis PCR Not detected Not detected 07/10/2024 11:11 AM MAGNETOMETER OPERATOR [facility] Bordetella pertussis PCR Not detected Not detected 07/10/2024 11:11 AM MAGNETOMETER OPERATOR [facility] Chlamydia pneumoniae PCR Not detected Not detected 07/10/2024 11:11 AM MAGNETOMETER OPERATOR [facility] Mycoplasma pneumoniae PCR Not detected Not detected 07/10/2024 11:11 AM MAGNETOMETER OPERATOR [facility] Microbiology SPECIMEN FROM NASOPHARYNGEAL STRUCTURE / Unknown Collection / Unknown 07/10/2024 4:18 AM MAGNETOMETER OPERATOR 07/10/2024 4:28 AM MAGNETOMETER OPERATOR Narrative [facility] - 07/10/2024 11:11 AM MAGNETOMETER OPERATOR Droplet Precautions Required. This nucleic amplification assay has received FDA authorization via the [employer]. Manuel Vick MD LAB - MICROBIOLOGY O RDERABLES [facility] [address] [place] [address], [facility] [phone] * CULTURE URINE (08/03/2020 2:47 PM MAGNETOMETER OPERATOR) Pathologist [facility] Urine Culture Routine Final report [facility] ACCOUNT BILL Result 1 [facility] ACCOUNT BILL Comment: Mixed urogenital rosales 10,000-25,000 colony forming units per mL Urine URINE SPECIMEN OBTAINED BY CLEAN CATCH PROCEDURE / Unknown 08/03/2020 2:47 PM MAGNETOMETER OPERATOR 08/03/2020 Narrative Resulting Agency Comment Lab Testing performed at: [facility] [place] [id number] [facility] [id number] Anabel Sierra APRN-CUSTOMER SUPPLY CHAIN ANALYST LAB - MICROBIOL OGY ORDERABLES Performing Organization Address City/[facility]/ZIP Co de Phone Number [facility] ACCOUNT BILL [address] [place] [address] * URINALYSIS AUTO - POINT OF CARE (AMB) STL (08/03/2020 2:41 PM MAGNETOMETER OPERATOR) Clarity UA POCT cloudy [facility] [...] UA +++ Negative [facility] Specific [place] UA POCT 1.020 1.002 - 1.030 [facility] Ketone UA 160 Negative [facility] Bilirubin UA POCT neg Negative [facility] Glucose UA neg Negative [facility] Expiration Date 07/28/2020 [facility] Lot # [id number] [facility] QC Verified Yes Yes [facility] Urine URINE / Unknown 08/03/2020 2 :41 PM MAGNETOMETER OPERATOR Anabel Sierra INTERLINE CLERK-CUSTOMER SUPPLY CHAIN ANALYST LAB - POINT OF CARE ORDERABLES [facility] [address] [phone] Care Teams Lumber Tallier Relationship Specialty Start Date End Date Adriana Posey MD [address] [place] [address] PCP - General 08/05/22
--- OUTSIDE RECORDS SUMMARY | 2024-08-10 08:32 | XMS_ITS | Referral Summary ---
Author Organization [facility] Address [address] [place] [address] Care Team Providers Care Sports Physician Name Role Phone Adriana Posey MD Primary Care Provider [phone] Source Comments [facility],non-owned Affiliates and Associated Physician Practices is amultiple site organization consisting of ambulatory clinics and hospital sitesin [place], [place], [place] and [place]. This disclosure is being madepursuant to the Care Everywhere program and may not contain all information available regarding this patient. Last updated 18.[facility] Encounters Date Type Department Care Team Description 07/14/2024 Telephone [facility] PHYS OB [address] [place], [place] [id number] Selena Reese MD Results 07/10/2024 12:14 AM PIT SLAGMAN - 07/10/2024 4:26 AM [facility] Hospital Encounter [facility] [address] [place], [place] [id number] Manuel Vick MD Maternal Medicine Discharge Disposition: [...] every 12 hours 30 tablet 07/10/2024 Active Active Problems Problem Noted Date Diagnosed Date [...] Date Recorded PHQ2 TOTAL SCORE 0 12/04/2020 [facility] Occupat ional Health - Occupational Stress [...] any time in the past 12 m [facility], were you homeless or living in a detention (including now)? No 07/10/2024 Estimated Date of Delivery Comme nts Yes 08/12/2024 Based on Patient Reported Sex and Gender Information Value Date Recorded Sex Assigned at Not on file Gender Identity Not on file Sexual Orientation Not on file Last Filed Vital Signs Vital Sign Reading Time Taken Comments Blood Pressure 113/53 07/10/2024 4:15 AM PIT SLAGMAN Pulse 81 12/04/2020 11:08 AM CDT Temperature 37.8 C (100 F) 07/10/2024 4:15 AM PIT SLAGMAN Respiratory Rate 18 07/10/2024 4:15 AM PIT SLAGMAN Oxygen Saturation 100% 07/10/2024 3:16 AM PIT SLAGMAN Inhaled Oxygen Concentration - - Weight 97.5 kg (215 lb) 07/10/2024 12:15 AM PIT SLAGMAN Height 165.1 cm (5' 5 ) 07/10/2024 12:15 AM PIT SLAGMAN Body Mass Index 35.78 07/10/2024 12:15 AM PIT SLAGMAN Functional Status Functional Status Response Date of [...] Description 09/09/2024 10:52 PM CDT Hospital Encounter [facility] [address] [place] [address] Maternal Medicine Procedures Procedure Name Priority Date/Time Associated Diagnosis Comments NONSTRESS TEST Routine 07/10/2024 4:26 AM PIT SLAGMAN RESPIRATORY PANEL WITH SARS-COV-2 BY PCR (STL) Routine 07/10/2024 4:18 AM PIT SLAGMAN Encounter for supervision of normal , antepartum, unspecified (HCC) from Last 3 Months Results * NONSTRESS TEST (07/10/2024 4:26 AM PIT SLAGMAN) Narrative Manuel Vick MD - 07/10/2024 4:26 AM PIT SLAGMAN Dawna Crooks DO 07/10/2024 10:03 AM Name: [...] OTHER INFORMATION Maegan Shen RN Non-Stress Test [facility] Patient Name: Shimon Gaytan LMP: Patient's last menstrual period was 11/16/2020. Gestational Age: 35w2d as of 07/10/2024 Estimated Date of Delivery: 08/12/24 Indications: other chest pain NST date: 07/10/2024 NST duration: >20 mins Interpretation: NST: baseline 140 bpm, moderate variability, reactive, no decelerations [place]: no contractions Impression and Plan: FWB reassuring, continue monitoring as scheduled. Dawna Crooks DO 07/10/2024 10:03 AM Manuel Vick MD OB GYNE ORDERABLES * (ABNORMAL) RESPIRATORY PANEL WITH SARS-COV-2 BY PCR (STL) (07/10/2024 4:18 AM PIT SLAGMAN) Adenovirus PCR Not detected Not detected 07/10/2024 11:11 AM PIT SLAGMAN [facility] Coronavirus 229E PCR Not detected Not detected 07/10/2024 11:11 AM PIT SLAGMAN [facility] Coronavirus HKU1 PCR Not detected Not detected 07/10/2024 11:11 AM PIT SLAGMAN [facility] Coronavirus NL63 PCR Not detected Not detected 07/10/2024 11:11 AM PIT SLAGMAN [facility] Coronavirus OC43 PCR Not detected Not detected 07/10/2024 11:11 AM PIT SLAGMAN [facility] COVID-19 PCR Not detected Not detected 07/10/2024 11:11 AM PIT SLAGMAN [facility] Human Metapneumovirus PCR Not detected Not detected 07/10/2024 11:11 AM PIT SLAGMAN [facility] Human Rhinovirus/Enterov irus PCR Not detected Not detected 07/10/2024 11:11 AM PIT SLAGMAN [facility] Influenza A H1 2009 PCR Detected(A) Not detected 07/10/2024 11:11 AM PIT SLAGMAN [facility] Influenza B PCR Not detected Not detected 07/10/2024 11:11 AM PIT SLAGMAN [facility] Parainfluenza Virus 1 PCR Not detected Not detected 07/10/2024 11:11 AM P[facility] SLAGMAN [facility] Parainfluenza Virus 2 PCR Not detected Not detected 07/10/2024 11:11 AM PIT SLAGMAN [facility] Parainfluenza Virus 3 PCR Not detected Not detected 07/10/2024 11:11 AM PIT SLAGMAN [facility] Parainfluenza Virus 4 PCR Not detected Not detected 07/10/2024 11:11 AM PIT SLAGMAN [facility] Respiratory Syncytial Virus PCR Not detected Not detected 07/10/2024 11:11 AM PIT SLAGMAN [facility] Bordetella parapertussis PCR Not detected Not detected 07/10/2024 11:11 AM PIT SLAGMAN [facility] Bordetella pertussis PCR Not detected Not detected 07/10/2024 11:11 AM PIT SLAGMAN [facility] Chlamydia pneumoniae PCR Not detected Not detected 07/10/2024 11:11 AM PIT SLAGMAN [facility] Mycoplasma pneumoniae PCR Not detected Not detected 07/10/2024 11:11 AM PIT SLAGMAN [facility] Microbiology SPECIMEN FROM NASOPHARYNGEAL STRUCTURE / Unknown Collection / Unknown 07/10/2024 4:18 AM PIT SLAGMAN 07/10/2024 4:28 AM PIT SLAGMAN Narrative [facility] - 07/10/2024 11:11 AM PIT SLAGMAN Droplet Precautions Required. This nucleic amplification assay has received FDA authorization via the [employer]. Manuel Vick MD LAB - MICROBIOLOGY O RDERABLES [facility] [address] [place] [address], [facility] [phone] from Last 3 Months Care Teams Sports Physician Relationship Specialty Start Date End Date Adriana Posey MD [address] [place] [address] [place] [id number] [facility] - General 08/05/22
--- OUTSIDE RECORDS SUMMARY | 2024-08-10 08:32 | XMS_ITS | Clinical Summary ---
Author Organization [facility] [employer] Address [address] [place] [address] Care Team Providers Care [employer] Contact Printer Name Role Phone Adriana Posey MD Primary Care Provider Source Comments [facility] [employer],non-owned Affiliates and Associated Physician Practices is amultiple site organization consisting of ambulatory clinics and hospital sitesin [place], [place], [place] and [place]. This disclosure is being madepursuant to the Care Everywhere program and may not contain all information available regarding this patient. Last updated 18.[facility] [employer] Allergies Active Allergy Reactions Criticality Noted Date [...] Type Department Care Team Description 07/14/2024 Telephone [facility] PHYS OB [address] [place] [address] Selena Reese MD Results 07/10/2024 12:14 AM [employer] - 07/10/2024 4:26 AM [employer] Hospital Encounter [facility] [address] [place] [address] Manuel Vick MD Maternal Medicine Discharge Disposition: [...] Date Recorded PHQ2 TOTAL SCORE 0 12/04/2020 [facility] - Occupational Stress [...] in the past 12 m [facility], were you homeless or living in a fci (including now)? No 07/10/2024 Estimated Date of Delivery Comme nts Yes 08/12/2024 Based on Patient Reported Sex and Gender Information Value Date Recorded Sex Assigned at Not on file Gender Identity Not on file Sexual Orientation Not on file Last Filed Vital Signs Vital Sign Reading Time Taken Comments Blood Pressure 113/53 07/10/2024 4:15 AM [employer] Pulse 81 12/04/2020 11:08 AM CDT Temperature 37.8 C (100 F) 07/10/2024 4:15 AM [employer] Respiratory Rate 18 07/10/2024 4:15 AM [employer] Oxygen Saturation 100% 07/10/2024 3:16 AM [employer] Inhaled Oxygen Concentration - - Weight 97.5 kg (215 lb) 07/10/2024 12:15 AM [employer] Height 165.1 cm (5' 5 ) 07/10/2024 12:15 AM [employer] Body Mass Index 35.78 07/10/2024 12:15 AM [employer] Plan of Treatment Upcoming Encounters Date Type Department Care Team (Latest Contact Info) Description 09/09/2024 10:52 PM CDT Hospital Encounter [facility] [address] [place] [address] Maternal Medicine Health Maintenance Due Date Last Done Comments PAP SMEAR 1998 HIV SCREENING 2013 HPV VACCINE (1 - 3-dose series) 2013 HEPATITIS C SCREENING 06/25/2016 DTAP/TDAP/TD VACCINES (1 - Tdap) 2017 HEPATITIS B VACCINE (1 of 3 - 19+ 3-dose series) 2017 COVID-19 VACCINE ( - 2023-2 5 season) 2024 INFLUENZA VACCINE [...] Comments NONSTRESS TEST Routine 07/10/2024 4:26 AM [employer] RESPIRATORY PANEL WITH SARS-COV-2 BY PCR (STL) Routine 07/10/2024 4:18 AM [employer] Encounter for supervision of normal , antepartum, unspecified (HCC) from Last 3 Months Results * NONSTRESS TEST (07/10/2024 4:26 AM [employer]) Narrative Manuel Vick MD - 07/10/2024 4:26 AM [employer] Dawna Crooks DO 07/10/2024 10:03 AM Name: [...] OTHER INFORMATION Maegan Shen RN Non-Stress Test [facility] Patient Name: Shimon Gaytan LMP: Patient's last menstrual period was 11/16/2020. Gestational Age: 35w2d as of 07/10/2024 Estimated Date of Delivery: 08/12/24 Indications: other chest pain NST date: 07/10/2024 NST duration: >20 mins Interpretation: NST: baseline 140 bpm, moderate variability, reactive, no decelerations [place]: no contractions Impression and Plan: FWB reassuring, continue monitoring as scheduled. Dawna Croosk DO 07/10/2024 10:03 AM Manuel Vick MD OB GYNE ORDERABLES * (ABNORMAL) RESPIRATORY PANEL WITH SARS-COV-2 BY PCR (STL) (07/10/2024 4:18 AM [employer]) Adenovirus PCR Not detected Not detected 07/10/2024 11:11 AM [employer] [facility] Coronavirus 229E PCR Not detected Not detected 07/10/2024 11:11 AM [employer] [facility] Coronavirus HKU1 PCR Not detected Not detected 07/10/2024 11:11 AM [employer] [facility] Coronavirus NL63 PCR Not detected Not detected 07/10/2024 11:11 AM [employer] [facility] Coronavirus OC43 PCR Not detected Not detected 07/10/2024 11:11 AM [employer] [facility] COVID-19 PCR Not detected Not detected 07/10/2024 11:11 AM [employer] [facility] Human Metapneumovirus PCR Not detected Not detected 07/10/2024 11:11 AM [employer] [facility] Human Rhinovirus/Enterov irus PCR Not detected Not detected 07/10/2024 11:11 AM [employer] [facility] Influenza A H1 2009 PCR Detected(A) Not detected 07/10/2024 11:11 AM [employer] [facility] Influenza B PCR Not detected Not detected 07/10/2024 11:11 AM [employer] [facility] Parainfluenza Virus 1 PCR Not detected Not detected 07/10/2024 11:11 AM [employer] [facility] Parainfluenza Virus 2 PCR Not detected Not detected 07/10/2024 11:11 AM [employer] [facility] Parainfluenza Virus 3 PCR Not detected Not detected 07/10/2024 11:11 AM [employer] [facility] Parainfluenza Virus 4 PCR Not detected Not detected 07/10/2024 11:11 AM [employer] [facility] Respiratory Syncytial Virus PCR Not detected Not detected 07/10/2024 11:11 AM [employer] [facility] Bordetella parapertussis PCR Not detected Not detected 07/10/2024 11:11 AM [employer] [facility] Bordetella pertussis PCR Not detected Not detected 07/10/2024 11:11 AM [employer] [facility] Chlamydia pneumoniae PCR Not detected Not detected 07/10/2024 11:11 AM [employer] [facility] Mycoplasma pneumoniae PCR Not detected Not detected 07/10/2024 11:11 AM [employer] [facility] Microbiology SPECIMEN FROM NASOPHARYNGEAL STRUCTURE / Unknown Collection / Unknown 07/10/2024 4:18 AM [employer] 07/10/2024 4:28 AM [employer] Narrative [facility] - 07/10/2024 11:11 AM [employer] Droplet Precautions Required. This nucleic amplification assay has received FDA authorization via the [employer]. Manuel Vick MD LAB - MICROBIOLOGY O RDERABLES [facility] [address] [place] [address], [facility] [phone] from Last 3 Months Care Teams [employer] Contact Printer Relationship Specialty Start Date End Date Adriana Posey MD [address] [place] [address] [place] [id number] PCP - General 08/05/22
[2024-08-10] MEDS: LACTATED RINGERS 1,000 ML 125 ML IV CONT (08:40)
--- NOTE | 2024-08-10 08:48 | LDADM ---
This patient, [place], was admitted to Labor/Delivery/Recovery 105 on 08/10/24 at 08:16. Plans for labor, pain management and were discussed with patient. Patient/family oriented to hospital policies and general routines including ID bracelet, bed and alarms, visiting hours, pain management, procedures, bathroom and other care routines, personal items, smoking policy, room service/diet and guest tray routines, security routines, and visiting hours. Patient/Family are encouraged to report perceived risks to care and to ask questions if they do not understand what they are told or what they should do. See OBIX for further documentation.
[2024-08-10 08:50] LABS: Basophils Absolute Auto 0.1 K/mm3 (0.0-0.1); Basophils Percent Auto 0.3 % (0.2-1.2); Eosinophils Absolute Auto 0.2 K/mm3 (0-0.3); Eosinophils Percent Auto 0.9 % (0-4.4); Hematocrit 37.5 % (37.0-47.0); Hemoglobin 12.4 g/dL (12.0-15.0); Immature Granulocyte Absolute 0.32 K/mm3 (0.00-0.031); Immature Granulocyte Percent A 1.8 % (0-0.5); Lymphocytes Absolute Auto 2.78 K/mm3 (0.9-3.2); Mean Corpuscular HGB Conc 33.1 g/dl (32-36); Mean Corpuscular Hemoglobin 28.4 pg (26-34); Mean Platelet Volume 12.1 fl (7.4-10.4); Monocytes Percent Auto 5.6 % (2.6-8.5); Neutrophils Absolute Auto 13.1 K/mm3 (1.3-6.7); Neutrophils Percent Auto 75.4 % (45.5-73.1); Platelet Count Result 255 k/mm3 (150-375); Red Blood Count 4.36 M/mm3 (4.2-5.4); Red Cell Distribution Width 12.9 % (11.5-14.5); White Blood Count 17.4 K/mm3 (4.5-10.0)
[2024-08-10] MEDS: LACTATED RINGERS 1,000 ML 125 ML (09:08)
[2024-08-10] MEDS: OXYTOCIN 30 UNITS/NS 500 ML 30 UNITS/500 ML BAG 999 UNITS IV CONT (09:09)
--- NOTE | 2024-08-10 09:09 | WPDOBADMIT ---
Obstetrics - Admit Note Admission Note: record reviewed. No pertinent additions to the history and/or any subsequent changes in the physical findings that are not consistent with the expected course of the were found. Additions to the history and/or subsequent changes in the physical findings follow. None.Here in labor with SROM. 8 cm on admit
--- NOTE | 2024-08-10 09:10 | P.DS_ITS ---
DS: Admitting Diagnosis Discharge Date 08/11/24 Admitting Diagnosis active labor DS: Discharge Diagnosis Discharge Diagnosis (1) (normal spontaneous vaginal delivery): Code(s): O80 - Encounter for full-term uncomplicated delivery Status: Acute OB - DS: Summary OB Procedures : Ultrasound OB Procedures Intrapartum: Spontaneous Vag Delivery OB Procedures: : None Peripartum Data Infant Delivery Method: Natural Vaginal Laceration Description: None Episiotomy description: None complications: none Status at Discharge Functional status at discharge: independent ambulation Overall status at discharge: patient is progressing back to baseline Time Spent with Patient Time attestation: Total time spent providing and/or coordinating discharge services: DS: Data Data Completed and Pending Labs on day of discharge: Labs from last 24 hours 08/10/24 08:42 WBC 17.4 H RBC 4.36 Hgb 12.4 Hct 37.5 MCV 86.0 MCH 28.4 MCHC 33.1 RDW 12.9 Plt Count 255 MPV 12.1 H Immature Gran % (Auto) 1.8 H Neut % (Auto) 75.4 H Lymph % (Auto) 16.0 L [place] % (Auto) 5.6 Eos % (Auto) 0.9 Baso % (Auto) 0.3 Lymph # (Auto) 2.78 [place] # (Auto) 1.0 H Eos # (Auto) 0.2 Baso # (Auto) 0.1 Abs Immat Gran (auto) 0.32 H Absolute Neuts (auto) 13.1 H Absolute Nucleated RBC 0.000 Nucleated RBC % 0.0 RPR Titer Cancelled RPR Cancelled RPR Titer Add Testing Cancelled T.pallidum Ab (FTA-ABS) Cancelled T.pall Ab(FTA-ABS)Reflex Cancelled HIV 1&2 Ab/P24 Ag 4thGn Pending Blood Type Pending Antibody Screen Pending Discharge Plan Discharge Attending physician on discharge: Lluvia Helton Discharging Clinician: Lluvia Helton Patient Disposition: Home, Self-Care Activity: may shower and pelvic rest Diet: regular Discharge Instructions: Education: Mom and Baby Guide Given to: Follow-Up: Call your delivering provider's office for an appointment to be seen in: 4 weeks Mom and baby should come to the [facility] for the follow-up appointment. Appointment Date/Time: 08/13/2024 at 11:00 a.m. What to expect at your follow-up visit: Blood pressure check and assessment Call [phone] if you are unable to keep your appointment time. BREAST CARE: * Wear a snug supportive bra. * For engorgement discomfort: Breast Feeding: * Apply warm moist washcloths * Express milk as needed to relieve engorgement * Wear loose clothing Bottle Feeding: * May apply ice packs * For sore nipples: * Identify correct latch-on * Apply warm moist washcloths before and after nursing * Air dry nipples after nursing * May apply Lansinoh cream to nipples EPISIOTOMY/PERINEAL CARE: * Until bleeding stops, use your mark bottle after urinating * Change your pad frequently throughout the day * You may take sitz baths several times a day (fill your bathtub with warm water and soak for 20 minutes.) Do NOT bathe in the water * No tub baths until seen by your physician - You may shower ACTIVITY: * Rest as much as possible. * Do not exercise or lift anything heavier than your baby (such as laundry or other children.) * Avoid stairs or driving as much as possible. * Do not put anything into the vagina. No douching, tampons, or sexual activity until seen by physician. NOTIFY PHYSICIAN IF YOU HAVE ANY QUESTIONS OR IF ANY OF THE FOLLOWING SYMPTOMS OCCUR: * If your episiotomy or incision becomes red, swollen, or more painful than what you have experienced in the hospital. * If your vaginal bleeding becomes foul smelling. * If your vaginal bleeding becomes more heavy than a period or if your bleeding changes from pink to bright red. However, you may pass an occasional walnut- sized clot once or twice for the first week . * If you experience a sharp, shooting pain in you calves. * If you discover a hard, reddened area on your breast or if you experience flu- like symptoms. DIET: * Eat regular, well-balanced meals. * Drink plenty of fluids daily. If , drink to thirst. Patient Language: Maltese Stand Alone Forms: General Discharge Information Follow-up/Referrals: Lluvia Helton MD [Physician] - 6 Weeks Discharge Medications: Continued [id number] 1 mg Tablet 1 tablet PO DAILY Date of admission: 08/10/24 08:16 Primary Care Provider: Kalpesh,Adriana Najera Admitting Provider: Lluvia Helton Attending physician on admission: Lluvia Helton Condition: Stable
--- NOTE | 2024-08-10 09:10 | PM.OBPRVD ---
OB - Vaginal Delivery Note Procedure Delivery date: 08/10/24 Induction method: None Delivery monitor: External FHT and External Uterine Route of delivery: Episiotomy description: None Laceration Description: None Specimen: No Quantitative Blood Loss (ml): 50 Anesthesia type: None Disposition: Floor Complications: No immediate complications Baby Date of : 08/10/24 gender: Female presentation: vertex position: Right Occiput Anterior Placenta delivery description: Spontaneous Cord Vessel Description: 3 Vessels and Delayed Cord Clamping score one minute: 8 score five minutes: 9
[2024-08-10] MEDS: OXYTOCIN 30 UNITS/NS 500 ML 30 UNITS/500 ML BAG 125 UNITS IV CONT (09:41)
[2024-08-10 09:42] LABS: HIV 1/2 Ab P24 Ag Result Negative (Negative)
[2024-08-10] MEDS: ONDANSETRON INJ 4 MG/2 ML VIAL IV PUSH (10:31)
[2024-08-10] MEDS: WITCH HAZEL 40 PADS 1 PAD TOPICAL ×2 (10:39→16:31)
[2024-08-10] MEDS: IBUPROFEN 600 MG TABLET PO ×2 (10:40→20:24)
[2024-08-10] MEDS: BENZOCAINE 20% AER SPR (*SP) 56 GM CAN 1 SPRAY TOPICAL (10:40)
[2024-08-10] MEDS: LANOLIN (LANSINOH) 7.5 GM CREAM 1 APPLIC TOPICAL ×2 (10:45→16:31)
[2024-08-10 10:58] LABS: Syphilis IgG/IgM Antibody Negative (Negative)
--- NOTE | 2024-08-10 11:50 | OBPPTRN ---
Patient transferred to post room #291 via wheelchair. Support person present. Oriented to unit, room, information board, rooming in, admission packet and security measures. Patient verbalizes understanding.
--- NOTE | 2024-08-10 12:00 | PC.NURSE ---
1200:Met with mother to discuss needs and educate on early feedings after delivery. She did breastfeed her first baby but had a bad experience with help and ended up with cracked and bleeding nipples. It was too painful to latch so she bottle fed. She would really like to breastfeed this baby and has concerns about sore nipples and correct latch. We placed baby tummy to tummy in good alignment. Observed mother latching infant to the [left] breast in [cross cradle] position. Infant [was] able to maintain an appropriate latch. Mother [declines] nipple pain/discomfort [throughout feeding]. Her right nipple has a blister from the initial . We reviewed how to check baby's lower lip for rolling and how to pull it out by tugging on her chin. We also discussed that when babies get sleepy they can get shallow on the nipple and cause trauma. Mom knows that the nipple pain should only get better and not worse. If there is additional trauma we need to reassess the latch and positioning. Encouraged mother to keep awake and nursing at the breast for 15 minutes or as long as baby wants. Mother will burp baby between breasts and off the right breast if desires. Reviewed using the blue feeding sheet to record time and duration of feeding. Mother voiced understanding of the education shared, to call for assistance if the does not latch or if there is discomfort with . name/number on communication board. Reported to the Primary RN.? [id number]: Mother called out because baby was acting hungry again. She latched independently to the left breast in cross cradle position. Baby's lip appeared rolled in and mom is advised to tug on baby's chin at every feeding to roll the lip out. Mom states that the latch is not painful. Encouraged unlimited skin to skin time and opportunities for baby. Mom is encouraged that she is doing well and that baby can latch effectively. Reported to primary RN.
[2024-08-10] MEDS: DOCUSATE SODIUM 100 MG CAPSULE PO (16:31)
[2024-08-10] MEDS: ACETAMINOPHEN 325 MG TABLET 650 MG PO (20:23)
[2024-08-11] MEDS: ACETAMINOPHEN 325 MG TABLET 650 MG PO ×2 (02:38→12:24)
[2024-08-11] MEDS: IBUPROFEN 600 MG TABLET PO ×2 (02:38→12:23)
[2024-08-11 05:50] LABS: Hematocrit 38.8 % (37.0-47.0); Hemoglobin 11.1 g/dL (12.0-15.0)
[2024-08-11 07:40] VITALS: BP 129/83; PULSE 60; RESP 16; TEMP 36.6; O2SAT 99
[2024-08-11] MEDS: DOCUSATE SODIUM 100 MG CAPSULE PO (07:49)
[2024-08-13 11:17] VITALS: BP 134/85; PULSE 84; RESP 18; TEMP 37; O2SAT 100
== END 2024-08-11 12:55 | disposition home or self-care (01) | DRG 807 ==
LOC: ANHLDR 09:11 → ANHOB2 12:04
PROVIDERS: Admitting Provider Obstetrics & Gynecology Gynecology; PCP Family Medicine; Visit Provider Obstetrics & Gynecology Gynecology
DX: O80 Encounter for full-term uncomplicated delivery (principal); Z37.0 Single live birth; Z3A.39 39 weeks gestation of pregnancy
CPT/HCPCS: 36415; 85014; 85018; 85025; 86593; 86703; 86850; 86880; 86900; 86901; 86902; A9270; G0432; J2405; J2590; J7120